=== PATIENT | female | born 1975 | race Caucasian/White ===

== ENCOUNTER 2021-02-16 09:04 | Outpatient (REF) | payer OTHER, SELFPAY ==
[2021-02-16 11:20] LABS: Glucose Urine UA NEG (NEG); Leukocyte Esterase Urine NEG (NEG); Nitrite Urine NEG (NEG); Urine Blood TRACE (NEG); Urine Ketones NEG (NEG); Urine Protein NEG (NEG-TRACE)
[2021-02-16 11:22] LABS: Appearance Urine CLEAR; Color Urine YELLOW
[2021-02-16 11:28] LABS: Hematocrit 33.6 % (37-47); Hemoglobin 10.6 g/dl (12.0-16.0); Mean Corpuscular HGB Conc 31.5 g/dl (31.0-35.0); Mean Corpuscular Hemoglobin 27.5 pg (27.0-33.0); Mean Corpuscular Volume 87.3 fL (80-98); Mean Platelet Volume 10.2 fL (9.4-12.3); Platelet Count 385 X10*3/uL (160-400); Red Blood Count 3.85 X10*6/uL (4.20-5.50); Red Cell Distribution Width 14.6 % (11.0-16.0); White Blood Count 5.9 X10*3/uL (4.8-10.8)
[2021-02-16 11:33] LABS: Squamous Epithelial Cell Urine 1+ /LPF; WBC Urine 0 /HPF (0-4)
[2021-02-16 11:44] LABS: Alanine Aminotransferase 22 U/L (0-31); Albumin Level 4.3 g/dL (3.5-5.0); Alkaline Phosphatase 55 U/L (39-117); Anion Gap 12 (12-20); Aspartate Amino Transferase 22 U/L (5-31); Bilirubin Total 0.5 mg/dL (0.0-1.0); Blood Urea Nitrogen 9 mg/dL (9-16); Calcium 9.3 mg/dL (8.4-10.2); Carbon Dioxide 25 mmol/L (22-29); Chloride 107 mmol/L (96-108); Cholesterol 204 mg/dL; Estimated Glomerular Filt Rate > 60; Glucose Fasting 97 mg/dL (60-99); HDL Cholesterol 71 mg/dL; LDL Cholesterol Calculated 121 mg/dl; Sodium 139 mmol/L (135-145); Total Protein 7.5 g/dL (6.5-8.0); Triglycerides 61 mg/dL
[2021-02-16 12:11] LABS: TSH reflex Free T4 1.16 uIU/mL (0.32-4.0)
== END 2021-02-16 09:05 | disposition home or self-care (01) ==
LOC: HO.HMGCLDS 09:04
PROVIDERS: PCP Internal Medicine; Visit Provider Internal Medicine
DX: Z00.00 Encounter for general adult medical examination without abnormal findings (principal); N94.6 Dysmenorrhea, unspecified
CPT/HCPCS: 36415; 80053; 80061; 81001; 84443; 85027

== ENCOUNTER 2021-03-03 08:31 | Outpatient (REF) | payer OTHER, SELFPAY ==
[2021-03-03 11:54] LABS: Iron 16 mcg/dL (30-160); Percent Iron Saturation 3 % (15-50); Total Iron Binding Capacity 499 mcg/dL (228-428); Unsaturated Iron Binding 483 ug/dL
[2021-03-04 07:51] LABS: Follicle Stimulating Hormone 5.7 mIU/mL
== END 2021-03-03 08:32 | disposition home or self-care (01) ==
LOC: HO.HMGCLDS 08:31
PROVIDERS: PCP Internal Medicine; Visit Provider Internal Medicine
DX: Z00.00 Encounter for general adult medical examination without abnormal findings (principal); N94.6 Dysmenorrhea, unspecified
CPT/HCPCS: 36415; 83001; 83540

== ENCOUNTER 2021-03-03 08:55 | Outpatient (REF) | payer OTHER, SELFPAY ==
[2021-03-08 21:06] LABS: HPV mRNA E6/E7 Not Detected (Not Detected)
== END 2021-03-03 08:56 | disposition home or self-care (01) ==
LOC: HO.LAB 08:55
PROVIDERS: Visit Provider Internal Medicine
DX: Z12.4 Encounter for screening for malignant neoplasm of cervix (principal); Z11.51 Encounter for screening for human papillomavirus (HPV)
CPT/HCPCS: 87624; 88142

== ENCOUNTER 2021-04-27 11:00 | Outpatient (REF) | payer OTHER, SELFPAY ==
--- NOTE | ~2021-04-27 | MM_ITS ---
EXAMINATION: MM SCREENING DIGITAL BREAST TOMOSYNTHESIS, BILATERAL CLINICAL INFORMATION: Screening. Asymptomatic. No prior breast imaging. Age 45. No known family history breast cancer. The lifetime risk of breast cancer based on the Tyrer-Cuzick Model is 8%. COMPARISON: None (current study represents initial baseline exam). TECHNIQUE: Digital breast tomosynthesis is performed in both the craniocaudal and mediolateral oblique views along with computer-aided detection (CAD). Synthesized 2D images are generated from the tomosynthesis. FINDINGS: There are scattered areas of fibroglandular density (ACR BI-RADS breast composition Category b). There are no significant masses, abnormal calcifications, or other abnormalities. The axilla and skin contours are unremarkable. MM/MM tomosynthesis screening BI IMPRESSION: No mammographic evidence of malignancy. ASSESSMENT: BI-RADS 1: Negative RECOMMENDATION: Routine annual mammography screening. This patient's information was entered into a reminder system with a target due date for their next mammogram.
--- NOTE | ~2021-04-27 | US_ITS ---
EXAMINATION: US PELVIC AND ULTRASOUND CLINICAL INFORMATION: Dysmenorrhea. COMPARISON: None TECHNIQUE: Transabdominal and transvaginal pelvic ultrasound was performed. Transvaginal exam was performed for better visualization of the uterus and ovaries. FINDINGS: The uterus is anteverted and measures 11 x 6.2 x 7.1 cm in dimension. No focal uterine lesion is seen. The endometrium is slightly thickened measuring 1.8 cm and heterogeneous-appearing. The ovaries are normal-appearing. The right ovary measures 3.3 x 2 x 1.9 cm. The left ovary measures 3.6 x 2.8 x 2.4 cm. There is a small amount of fluid in the pelvis. US/US pelvic and transvaginal IMPRESSION: Upper normal sized uterus. Slightly thickened heterogeneous endometrium measuring 1.8 cm. Normal-appearing ovaries.
== END 2021-04-27 11:01 | disposition home or self-care (01) ==
LOC: HO.US 11:00
PROVIDERS: PCP Internal Medicine; Visit Provider Internal Medicine
DX: Z12.31 Encounter for screening mammogram for malignant neoplasm of breast (principal); N94.6 Dysmenorrhea, unspecified
CPT/HCPCS: 76830; 76856; 77063; 77067

== ENCOUNTER 2021-08-29 13:17 | Outpatient (REF) | payer OTHER, SELFPAY ==
--- NOTE | ~2021-08-29 | XR_ITS ---
EXAMINATION: XR CHEST CLINICAL INFORMATION: Positive Covid 19 COMPARISON: None TECHNIQUE: 2 views of the chest were obtained. FINDINGS: No significant abnormality is noted involving the heart, lungs, mediastinum, bony thorax or soft tissues. XR/XR chest 2V IMPRESSION: No acute disease.
== END 2021-08-29 13:18 | disposition home or self-care (01) ==
LOC: HO.HMGCX 13:17
PROVIDERS: PCP Nurse Practitioner Family; Visit Provider Nurse Practitioner Family
DX: U09.9 Post COVID-19 condition, unspecified (principal)
CPT/HCPCS: 71046

== ENCOUNTER 2022-03-28 08:21 | Outpatient (REF) | payer OTHER, SELFPAY ==
[2022-03-28 11:10] LABS: MANUAL DIFF FLAG NO
[2022-03-28 11:37] LABS: Basophils Percent Auto 0.5 % (0-2); Eosinophils Absolute Auto 0.2 X10*3/uL (0.0-0.4); Hematocrit 32.8 % (37.0-47.0); Hemoglobin 10.2 g/dl (12.0-16.0); Imm Gran Abs Auto 0.02 X10*3/uL (0.00-0.03); Imm Gran Pct Auto 0.3 % (0.0-0.4); Lymphocytes Absolute Auto 1.5 X10*3/uL (1.2-4.9); Lymphocytes Percent Auto 22.7 % (20-40); Mean Corpuscular HGB Conc 31.1 g/dl (31.0-35.0); Mean Corpuscular Volume 83.7 fL (80.0-98.0); Mean Platelet Volume 10.8 fL (9.4-12.3); Monocytes Absolute Auto 0.6 X10*3/uL (0.1-1.2); Monocytes Percent Auto 9.5 % (2-11); Neutrophils Absolute Auto 4.1 x10*3/uL (2.0-8.3); Platelet Count 366 X10*3/uL (160-400); Red Blood Count 3.92 X10*6/uL (4.20-5.50); Red Cell Distribution Width 14.9 % (11.0-16.0); White Blood Count 6.4 X10*3/uL (4.8-10.8)
[2022-03-28 12:00] LABS: Alanine Aminotransferase 14 U/L (0-31); Albumin Level 4.3 g/dL (3.5-5.0); Alkaline Phosphatase 50 U/L (39-117); Anion Gap 9 (12-20); Aspartate Amino Transferase 16 U/L (5-31); Bilirubin Total 0.3 mg/dL (0.0-1.0); Blood Urea Nitrogen 10 mg/dL (9-16); Carbon Dioxide 27 mmol/L (22-29); Chloride 105 mmol/L (96-108); Cholesterol 194 mg/dL; Estimated Glomerular Filt Rate > 60; Glucose Fasting 97 mg/dL (60-99); HDL Cholesterol 63 mg/dL; Iron 26 mcg/dL (30-160); LDL Cholesterol Calculated 110 mg/dl; Percent Iron Saturation 5 % (15-50); Potassium 4.4 mmol/L (3.3-5.1); Sodium 137 mmol/L (135-145); Total Iron Binding Capacity 483 mcg/dL (228-428); Total Protein 7.5 g/dL (6.5-8.0); Triglycerides 108 mg/dL; Unsaturated Iron Binding 457 ug/dL
[2022-04-03 18:22] LABS: Vitamin D 25-OH, D2 <4 ng/mL; Vitamin D 25-OH, D3 25 ng/mL; Vitamin D 25-OH, Total 25 ng/mL (30-100)
== END 2022-03-28 08:22 | disposition home or self-care (01) ==
LOC: HO.HMGCLDS 08:21
PROVIDERS: PCP Internal Medicine; Visit Provider Internal Medicine
DX: Z00.00 Encounter for general adult medical examination without abnormal findings (principal); D64.9 Anemia, unspecified
CPT/HCPCS: 36415; 80053; 80061; 82306; 83540; 85025

== ENCOUNTER 2022-04-30 11:34 | Outpatient (REF) | payer OTHER, SELFPAY ==
--- NOTE | ~2022-04-30 | MM_ITS ---
EXAMINATION: MM SCREENING DIGITAL BREAST TOMOSYNTHESIS, BILATERAL CLINICAL INFORMATION: Screening. Asymptomatic. The lifetime risk of breast cancer based on the Tyrer-Cuzick Model is 7%. COMPARISON: Mammography: 04/27/2021 (baseline) TECHNIQUE: Digital breast tomosynthesis is performed in both the craniocaudal and mediolateral oblique views along with computer-aided detection (CAD). Synthesized 2D images are generated from the tomosynthesis. FINDINGS: There are scattered areas of fibroglandular density (ACR BI-RADS breast composition Category b). There are multiple grouped punctate calcifications central upper outer left breast more conspicuous on current study and representing change from prior exam. Patient will be read for additional magnification views. The remainder of the breasts show no mass or architectural abnormality or abnormal calcifications. No developing density. The axilla and skin contours are unremarkable. MM/MM tomosynthesis screening BI IMPRESSION: Left: -Grouped punctate calcifications central upper outer left breast. Right: -No mammographic evidence of malignancy. ASSESSMENT: BI-RADS 0: Incomplete - Need Additional Imaging Evaluation RECOMMENDATION: 1. Additional views of the left breast (magnification CC, magnification ML). 2. Radiology department staff will contact the patient for additional imaging. This patient's information was entered into a reminder system with a target due date for their next mammogram.
== END 2022-04-30 11:35 | disposition home or self-care (01) ==
LOC: HO.MAMMO 11:34
PROVIDERS: PCP Internal Medicine; Visit Provider Internal Medicine
DX: Z12.31 Encounter for screening mammogram for malignant neoplasm of breast (principal)
CPT/HCPCS: 77063; 77067

== ENCOUNTER 2022-05-09 13:36 | Outpatient (REF) | payer OTHER, SELFPAY ==
--- NOTE | ~2022-05-09 | MM_ITS ---
EXAMINATION: MM DIAGNOSTIC DIGITAL MAMMOGRAPHY, LEFT CLINICAL INFORMATION: Recall from screening for grouped punctate calcifications central upper outer left breast. COMPARISON: Mammography: 04/30/2022, 04/27/2021 (baseline) TECHNIQUE: Digital mammography is performed in the following views: Magnification CC and magnification ML. FINDINGS: There are scattered areas of fibroglandular density (ACR BI-RADS breast composition Category b). The additional views confirm numerous tightly grouped heterogeneous calcifications anterior 12:30 position. This represents change from prior exam. Stereotactic sampling is recommended. Results are discussed with the patient and her friend at time of visit. MM/MM added views LT IMPRESSION: Grouped heterogeneous calcifications anterior 12:30. ASSESSMENT: BI-RADS 4: Suspicious RECOMMENDATION: Stereotactic biopsy left breast. This patient's information was entered into a reminder system with a target due date for their next mammogram.
== END 2022-05-09 13:37 | disposition home or self-care (01) ==
LOC: HO.MAMMO 13:36
PROVIDERS: PCP Internal Medicine; Visit Provider Internal Medicine
DX: R92.1 Mammographic calcification found on diagnostic imaging of breast (principal)
CPT/HCPCS: 77065

== ENCOUNTER 2022-05-17 09:05 | Outpatient (REF) | payer OTHER, MEDICAID, SELFPAY ==
--- NOTE | ~2022-05-17 | MM_ITS ---
EXAMINATION: STEREOTACTIC TOMOSYNTHESIS-GUIDED VACUUM-ASSISTED BREAST BIOPSY, LEFT SPECIMEN RADIOGRAPH, LEFT POST PROCEDURE DIGITAL MAMMOGRAM, LEFT CLINICAL INFORMATION: Tightly grouped calcifications anterior 12:30 left breast. TC score 7%. COMPARISON: Mammography 05/09/2022, 04/30/2022, 04/27/2021. TECHNIQUE/PROCEDURE: Hospital provided parts interpreter assisted for the preprocedure questions, consent, and home instructions. Informed consent was obtained from the patient after discussion of the benefits, risks, and alternatives to biopsy today. Patient appeared to understand. Gave opportunity for questions. Patient signed consent form. BIOPSY TABLE: [employer] Affirm Prone Biopsy System. LESION: Tightly grouped calcifications anterior 12:30 left breast. LOCAL ANESTHESIA: 20 mL carbonated 1% lidocaine. DERMATOTOMY: Single skin tiffanie dermatotomy performed. NEEDLE: [employer] Eviva 9-gauge vacuum assisted core biopsy device. APPROACH: Craniocaudal. TARGETING: Combination of digital breast tomosynthesis and stereotactic digital mammography used for targeting. CORES: 10. CLIP: [employer] SecurMark Cylinder-shaped marker. SPECIMEN RADIOGRAPH: Two specimen radiographs are taken in separate room using digital mammography. The index calcifications are in the 2nd radiograph excised cores. There are over 25 calcifications in the cores. POST PROCEDURE UNILATERAL DIGITAL MAMMOGRAM: The post biopsy mammogram is performed in separate room using separate digital mammography equipment from the biopsy procedure. CC and ML views are obtained. There are scattered areas of fibroglandular density (breast composition category: b). The clip marker is in position. The calcifications are decreased at the biopsy site. No gross hematoma. The patient tolerated the procedure well. No immediate complications. Home instructions reviewed with the patient. Final pathology results are pending. MM/MM stereotactic biopsy LT IMPRESSION: 1. Digital tomosynthesis-guided core biopsy left breast with clip placement. 2. Specimen radiograph taken and post procedure mammogram. There is satisfactory positioning of the biopsy clip. 3. Final pathology results pending. An addendum report will be issued.
[2022-05-17] MEDS: Lidocaine HCl 1 % 20 ML VIAL 9 ML SUBCUT ×2 (10:54→10:57)
[2022-05-17] MEDS: Sodium Bicarbonate 8.4% 50 MEQ/50 ML VIAL SUBCUT ×2 (10:56→10:58)
== END 2022-05-17 09:06 | disposition home or self-care (01) ==
LOC: HO.MAMMO 09:05
PROVIDERS: PCP Internal Medicine; Visit Provider Surgery
DX: R92.8 Other abnormal and inconclusive findings on diagnostic imaging of breast (principal)
CPT/HCPCS: 19081; 88305; 88341; 88342; A4648

== ENCOUNTER 2022-06-13 08:52 | Day surgery (SDC) | payer OTHER, SELFPAY ==
--- NOTE | 2022-06-12 09:28 | HO.ANESPROP2 ---
Documented by User: Franca Metzger NP 06/12/22 09:29 HPI - Anesthesia Eval Consult details Narrative: 46yo F for Left Breast Lumpectomy/Needle Loc PMFSH Active Problems Active Problems: All Active Problems (Updated 06/04/22 @ 17:03 by Frankie Giron MD) Atypical ductal hyperplasia of left breast (Acute) Abnormal mammogram of left breast (Acute) Hx of mammogram (Acute) Normal pelvic exam (Acute) Post covid-19 condition, unspecified (Acute) Anemia (Acute) Annual physical exam (Acute) Dysmenorrhea (Acute) Past Medical History Medical History Anemia Annual physical exam Dysmenorrhea Family History Family History Father Throat cancer Mother No problems noted. 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 Current occupational exposures/hazards: No Cognitive needs: No Hearing needs: No Vision needs: Yes Meds Allergies Allergy/AdvReac Type Severity Reaction Status Date / Time No Known Allergies Allergy Verified 05/17/22 08:42 Home Medications Medication Instructions Recorded Confirmed Last Taken Type norethindrone acetate 5 mg tablet mg PO 05/17/22 06/04/22 06/06/22 History ferrous sulfate 325 mg (65 mg 65 mg PO BEDTIME 06/13/22 06/13/22 06/12/22 History iron) tablet (Iron (ferrous sulfate)) Exam Exam Date and Time: June 12, [id number] Pertinent Lab Results Pertinent Lab Results: Laboratory Tests 03/28/22 03/28/22 08:26 08:26 WBC 6.4 Hgb 10.2 L Hct 32.8 L Plt Count 366 Sodium 137 Potassium 4.4 Chloride 105 Carbon Dioxide 27 BUN 10 Creatinine 0.72 Assessment and Plan Assessment Anesthesia Assessment: Chart Reviewed Documented by User: Lo Melchor MD 06/13/22 10:01 [facility] Past Medical History Medical History Anemia Annual physical exam Dysmenorrhea Functional capacity: independent ambulation Patient : No Family History Family History Father Throat cancer Mother No problems noted. 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/hazards: No Cognitive needs: No Hearing needs: No Vision needs: Yes Meds Allergies Allergy/AdvReac Type Severity Reaction Status Date / Time No Known Allergies Allergy Verified 05/17/22 08:42 Home Medications Medication Instructions Recorded Confirmed Last Taken Type norethindrone acetate 5 mg tablet mg PO 05/17/22 06/04/22 06/06/22 History ferrous sulfate 325 mg (65 mg 65 mg PO BEDTIME 06/13/22 06/13/22 06/12/22 History iron) tablet (Iron (ferrous sulfate)) Exam Airway Heart: RRR Lungs: CTA Assessment and Plan Final Anesthetic Review Family History of Problems with Anesthesia: No History of Problems with Anesthesia: Unobtainable ASA Class: II Final Preanesthetic Review: No Changes in Pt Med Stat, Meds/Allgs Chart Reviewed, Consent Obtained/Reviewed and Anes Risks/Benef Reviewed Patient Risk: Low Procedure Risk: Low Anesthetic Plan Anesthetic Plan: GA Disposition: Standard PACU
[2022-06-13] VITALS (7 sets, daily range): BP systolic 107–127; BP diastolic 60–89; PULSE 58–87; RESP 13–20; TEMP 36.1–36.3; O2SAT 98–100; BMI 28.7
--- NOTE | ~2022-06-13 | MM_ITS ---
EXAMINATION: MM MAMMOGRAM GUIDED NEEDLE LOCALIZATION BREAST, LEFT MM NEEDLE LOCALIZATION SPECIMEN FROM THE LEFT BREAST CLINICAL INFORMATION: Recent ADH left breast. COMPARISON: Mammography 04/30/2022, 05/09/2022, 05/17/2022. TECHNIQUE NEEDLE LOC: Hospital provided japanese interpreter assisted for the consent. Proper informed consent is obtained from the patient after discussion of the procedure, potential risks and complications, and alternatives including declining the procedure today. Patient was given an opportunity for questions. The patient appeared to understand. The patient consented to the procedure and signed the consent form. GUIDANCE: Digital mammography. APPROACH: Lateral Medial. TARGET: Cylinder shaped clip marker with adjacent fine calcifications upper outer left breast. ANESTHESIA: Carbonated lidocaine 1%: 6 mL. LOCALIZATION MARKER: [place] [employer]. 7.5 cm in length. The skin is prepped and local anesthesia administered. The needle is positioned and position assessed with mammography. The wire is hooked into position. Dolphin needle protector placed. The patient tolerated the procedure well and had no immediate complication. Procedure results called to medical coding manager (Lisa) for Dr. Giron following the procedure. TECHNIQUE SPECIMEN RADIOGRAPH: Imaging of the excised specimen is performed using digital mammography in 1 view. FINDINGS SPECIMEN RADIOGRAPH: The distal needle and hookwire are delivered intact. The proximal needle and hookwire are sectioned in OR prior to delivery to radiology. The biopsy clip marker and numerous adjacent index calcifications are identified in the specimen. Results were called to Dr. Frankie Giron in the operating room at the time of imaging. MM/MM needle loc LT IMPRESSION: 1. Status post left breast needle localization with wire hooked into position. 2. Post operative specimen radiograph obtained.
[2022-06-13 09:11] LABS: UPreg QC Valid YES; Urine Pregnancy NEGATIVE (NEGATIVE)
[2022-06-13] MEDS: Lactated Ringers 1,000 ML 100 ML IVCONT (10:00)
--- NOTE | 2022-06-13 11:05 | MHC.SHP ---
Pre-Procedural Eval Section A Date of Service: 06/13/22 Changes since office visit: Yes Patient answered all questions; No Cold of Flu in the past 2 weeks, No New Medical Problems and No Changes in Medication The History & Physical has been completed within 30 days and I have reviewed it.: Yes Section B Chief Complaint: Unspecified benign mammary dysplasia of left breas Allergies: Allergies Allergy/AdvReac Type Severity Reaction Status Date / Time No Known Allergies Allergy Verified 05/17/22 08:42 Plan Diagnosis/Plan: Unchanged I have reviewed the history and physical and performed a pertinent physical examination on my patient. No changes have occurred unless specified.
[2022-06-13] MEDS: Lidocaine HCl 1 % 20 ML VIAL 9 ML SUBCUT (11:31)
[2022-06-13] MEDS: Sodium Bicarbonate 8.4% 50 MEQ/50 ML VIAL SUBCUT (11:33)
--- NOTE | 2022-06-13 12:24 | P.OP_ITS ---
Operative Note Operative Note Date of Service: 06/13/22 Narrative: Preoperative diagnosis: atypical ductal hyperplasia left breast Postoperative diagnosis: same Procedure: left breast lumpectomy with needle localization Surgeon: Frankie Giron MD Construction Lineman: Jeanette Lara PA-C, SMILEY Hoover Anesthesia: general LMA Indications for procedure: 46-year-old male presenting with a cluster of calcifications in left breast, s/p stereotactic guided core biopsy which reveal ed atypical ductal hyperplasia. She returns today for wider excision with needle localization. Operative findings: Specimen x-ray confirms marking clip and calcifications within the specimen. Specimen: Left breast lumpectomy Estimated blood loss: 10 mL Complications: none Procedure details: patient was brought to the OR placed in a supine position. After administering general anesthesia the patient's left breast was prepped with ChloraPrep and draped in a sterile fashion. A surgical time-out was called the consent confirmed. Patient received preoperative antibiotics and Venodyne boots were in place. Local anesthesia consisting of 0.5% bupivacaine was infiltrated around the localizing wire in the upper outer quadrant. A curvilinear incision was made at the margin of the areola at the 12 to the 2 o'clock position. This was carried out through subcutaneous tissue. Superior inferior skin flaps were then created over the breast tissue. Using the localizing needle as a guide a core of tissue surrounding the localizing wire was then excised using electrocautery. Margins included below the skin level at the entrance site of the needle and the tip of the needle. A barbed wire machine operator was used to cut the needle at the insertion site in the specimen removed. the specimen was sent to pathology for further examination. Specimen x-ray confirmed calcifications in marking clip within the specimen. Wounds were then checked for hemostasis using electrocautery. Wounds were irrigated with saline solution and suctioned dry. Deep breast tissue was then closed using interrupted 3-0 Polysorb sutures. Superficial breast tissue and dermis were then reapproximated using interrupted 3-0 Polysorb sutures. Skin was closed using a running subcuticular 4-0 Polysorb suture. Steri-Strips, 2 x 2 gauze and Tegaderm were then applied. The patient tolerated the procedure well. Sponge, instrument, and needle counts were correct. The patient was transferred to PACU in stable condition.
--- NOTE | 2022-06-13 13:16 | HO.POSTANES ---
Post Anesthesia Evaluation Post Anesthesia Evaluation Vital Signs: Vital Signs Temp Pulse Resp BP Pulse Ox O2 Del Method O2 Flow Rate 06/13/22 13:00 58 16 115/62 99 Room Air 06/13/22 12:45 64 15 108/66 100 Nasal Cannula 2 06/13/22 12:40 65 13 115/66 100 Nasal Cannula 2 06/13/22 12:35 75 16 119/74 99 Nasal Cannula 2 06/13/22 12:30 97.0 F 87 20 111/60 98 Nasal Cannula 3 06/13/22 09:13 97.4 F 83 16 127/89 99 Room Air Anesthesia: General LMA Mental Status: Awake Pain Control: Satisfactory Nausea/Vomiting: None Hydration: Adequate Anesthesia-Related Issues: No Anes. Related Issues
== END 2022-06-13 13:58 | disposition home or self-care (01) ==
PROVIDERS: Nurse Practitioner; PCP Internal Medicine; Visit Provider Surgery
PROC: (CPT 19301; principal; 2022-06-13 11:00)
DX: N60.92 Unspecified benign mammary dysplasia of left breast (principal); N94.6 Dysmenorrhea, unspecified; D64.9 Anemia, unspecified; Z79.899 Other long term (current) drug therapy; Z87.891 Personal history of nicotine dependence
CPT/HCPCS: 19301; 19281; 81025; 88307; 88329; A4648; J0131; J0690; J1100; J2250; J2405; J2795; J3010

== ENCOUNTER 2022-07-04 14:24 | Outpatient (REF) | payer OTHER, SELFPAY ==
--- NOTE | ~2022-07-04 | MM_ITS ---
EXAMINATION: BONE DENSITOMETRY CLINICAL INDICATION: Perimenopausal. COMPARISON: This is the patient's baseline examination. TECHNIQUE: Using a [employer] DXA System (software version: 13.1) manufactured by [employer], dual-energy x-ray absorptiometry was performed of the lumbar spine and left hip. The images are of good technical quality. Based on ISCD (International Society for Clinical Densitometry) standards of reporting, Z-scores instead of T-scores are reported in this premenopausal woman. Summary results are attached. FINDINGS: AP SPINE L1-L4: BMD 1.285 g/cm2, T-score 0.9, Z-score 0.7, Z-score within expected range for age. LEFT FEMUR, NECK: BMD 1.120 g/cm2, T-score 0.6, Z-score 1.0, Z-score within expected range for age. LEFT FEMUR, TOTAL: BMD 1.127 g/cm2, T-score 0.9, Z-score 1.1, Z-score within expected range for age. IDENTIFIED RISK FACTORS: None listed. HISTORY OF FRACTURE: None listed. MEDICATIONS: None listed. MM/XR DEXA axial skeleton IMPRESSION: 1. DIAGNOSIS: Based on the lowest Z-score value of 0.7 in the lumbar spine, the patient's bone density is within the expected range for age. 2. 10-YEAR FRACTURE RISK PREDICTION, FRAX: Not performed in this perimenopausal patient. 3. Treatment Recommendations: NOF guidelines recommend consideration for treatment in postmenopausal women and men age 50 and older presenting with the following: -A hip or vertebral (clinical or morphometric) fracture. -T-score less than or equal to -2.5 at the femoral neck or spine after appropriate evaluation to exclude secondary causes. -Low bone mass at the hip or spine and a 10-year fracture probability by FRAX of greater than or equal to 3% for hip fracture or greater than or equal to 20% for major osteoporotic fracture based on the [place] adapted WHO algorithm. 4. Other Recommendations: All treatment decisions require clinical judgment and consideration of individual patient factors, including patient preferences, comorbidities, previous drug use, risk factors not captured in the FRAX model (e.g. frailty, falls, vitamin D deficiency, increased bone turnover, interval significant decline in bone density) and possible under or overestimation of fracture risk by FRAX. FUTURE SCAN RECOMMENDATION: People with diagnosed cases of osteoporosis or at high risk for fracture should have regular bone mineral density tests. For patients eligible for Medicare, routine testing is allowed once every 2 years. The testing frequency can be increased to one year for patients who have rapidly progressing disease, those who are receiving or discontinuing medical therapy to restore bone mass, or have additional risk factors.
== END 2022-07-04 14:25 | disposition home or self-care (01) ==
LOC: HO.MAMMO 14:24
PROVIDERS: PCP Internal Medicine; Visit Provider Internal Medicine Medical Oncology
DX: Z13.820 Encounter for screening for osteoporosis (principal); N60.92 Unspecified benign mammary dysplasia of left breast; Z78.0 Asymptomatic menopausal state
CPT/HCPCS: 77080

== ENCOUNTER → 2022-07-17 16:00 | Outpatient (BNV) | payer OTHER, SELFPAY | PROVIDERS: PCP Internal Medicine; Visit Provider Internal Medicine Medical Oncology | DX: N60.92 Unspecified benign mammary dysplasia of left breast (principal) | CPT/HCPCS: 99213; 99214 ==

== ENCOUNTER → 2022-09-25 11:43 | Outpatient (BNVA) | payer OTHER, SELFPAY | PROVIDERS: PCP Internal Medicine; Visit Provider Surgery | DX: Z13.89 Encounter for screening for other disorder (principal) ==

== ENCOUNTER 2023-04-02 15:43 | Outpatient (AMB) | payer OTHER, SELFPAY ==
--- NOTE | 2023-04-02 15:47 | MHC.OFFVIS ---
Intake Vital Signs 04/02/23 15:52 Height 5 ft 2 in Weight 153 lb BMI 28.0 BP 144/84 H Blood Pressure Location Lt brachial Position Sitting Pulse 85 Intake Visit Reasons: 3 mth follow up ADH Lt Brst Intake Note: Patient is seen in office for 3 month follow up visit, breast exam. 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 This was new from her baseline mammogram the previous year and felt to be suspicious for malignancy. Her Tyrer-Cuzick remaining lifetime risk of developing breast cancer was calculated at 7%. She denied a previous history of breast problems or breast surgery. Her family history is negative for breast cancer. She is and breastfed her children. She denies difficulties with breast-feeding or breast infections. She underwent a stereotactic guided core biopsy on 05/17/2022. Pathology revealed: Breast tissue with markedly atypical epithelium and associated microcalcifications, background fibrocystic changes. Atypical focus is quite small but resents at least atypical ductal hyperplasia. Cannot rule out ductal carcinoma in-situ. No invasive carcinoma is seen in the current sample. She underwent lumpectomy with needle localization on 06/13/2022. Pathology revealed a small focus of atypical ductal hyperplasia with negative margins; background biopsy site and fibrocystic changes. Negative for in-situ or invasive carcinoma. She was subsequently evaluated by Medical Oncology and started on tamoxifen. She is tolerating this well but does report some muscle aches and joint pain. She is scheduled for her annual mammogram on 05/03/2023 [facility] Medical History Anemia Annual physical exam Dysmenorrhea Surgical History History of lumpectomy of left breast (06/13/22) Family History Father Throat cancer Mother No problems noted. 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 Current occupational exposures/hazards: No Cognitive needs: No Hearing needs: No Vision needs: Yes Female Reproductive History Menstrual Age of Menarche: 16 Review of Systems Const All systems reviewed & are unremarkable except as noted in HPI and below Denies chills, Denies fever(s), Denies headache(s), Denies poor appetite and Denies weakness ENT Denies headache(s) Card Denies chest pain, Denies irregular heart rhythm, Denies palpitations and Denies dyspnea Resp Denies cough, Denies excessive phlegm production and Denies dyspnea GI Denies abdominal pain, Denies bloating, Denies change in bowel habits, Denies constipation, Denies heartburn, Denies diarrhea, Denies nausea and Denies vomiting Denies urinary frequency Musc Denies back pain, Denies muscle weakness and Denies numbness Skin/Breast Denies changing lesions and Denies unusual bruising Neuro Denies headache(s), Denies numbness, Denies paresthesias and Denies weakness Psych Denies anxiety and Denies depression Endo Denies palpitations Jai/Lymph Denies lymphadenopathy Physical Exam Vital Signs: Last Vital Signs Pulse 85 04/02/23 15:52 BP 144/84 H 04/02/23 15:52 BMI result Body Mass Index 28.0 Const General: cooperative and no acute distress Nutritional Appearance: well nourished Orientation/consciousness: patient oriented x3 Limitations: no limitations HEENT Head: Yes normocephalic and Yes atraumatic Ears: hearing grossly normal bilaterally Chest Other: Left breast: Well-healed incision in the periareolar location without redness or discharge. Slight retraction of the incision is noted. No new palpable mass, skin change, or enlarged lymph nodes are appreciated. Right breast: No skin change, nipple discharge, palpable mass, or enlarged lymph nodes. Resp Effort & Inspection: normal respiratory effort, no audible wheezes, no cough and no respiratory distress Cardio Jugular venous distension: no JVD GI Inspection: Yes normal to inspection Skin Other: Warm, dry, no rash Neuro General: patient oriented x3 Extrem General: Yes no clubbing, cyanosis or edema Assessment & Plan Assessment & Plan (1) Atypical ductal hyperplasia of left breast: Code(s): N60.92 - Unspecified benign mammary dysplasia of left breast Plan 47-year-old female patient presenting with atypical ductal hyperplasia of the left breast. Subsequent lumpectomy confirmed atypical ductal hyperplasia involving a small focus with no evidence of DCIS or invasive carcinoma. She was evaluated by Medical Oncology and started on tamoxifen. Examination today reveals no suspicious findings in either breast. There is a slight scar retraction noted in the left breast. I suggested she return in approximately 6 months for follow-up examination. She is welcome to call sooner for any new concerns. Yearly mammogram scheduled for 05/03/2023. Coding Level of Care Code Est Pt Level 3 (23780) Diagnoses Atypical ductal hyperplasia of left breast N60.92
[2023-04-02 15:52] VITALS: BP 144/84; PULSE 85; BMI 28.0
== END 2023-04-02 16:00 | disposition home or self-care (01) ==
PROVIDERS: PCP Internal Medicine; Visit Provider Surgery
DX: N60.92 Unspecified benign mammary dysplasia of left breast (principal)
CPT/HCPCS: 99213

== ENCOUNTER → 2023-04-02 15:43 | Outpatient (BNVA) | payer OTHER, SELFPAY | PROVIDERS: PCP Internal Medicine; Visit Provider Surgery ==

== ENCOUNTER 2023-04-16 10:37 | Outpatient (REF) | payer OTHER, SELFPAY ==
[2023-04-16 13:31] LABS: MANUAL DIFF FLAG NO
[2023-04-16 13:50] LABS: Basophils Percent Auto 0.3 % (0-2); Eosinophils Absolute Auto 0.1 X10*3/uL (0.0-0.4); Eosinophils Percent Auto 1.7 % (0-4); Hematocrit 40.5 % (37.0-47.0); Hemoglobin 13.4 g/dl (12.0-16.0); Imm Gran Abs Auto 0.01 X10*3/uL (0.00-0.03); Imm Gran Pct Auto 0.2 % (0.0-0.4); Lymphocytes Percent Auto 33.3 % (20-40); Mean Corpuscular HGB Conc 33.1 g/dl (31.0-35.0); Mean Corpuscular Hemoglobin 30.4 pg (27.0-33.0); Mean Corpuscular Volume 91.8 fL (80.0-98.0); Mean Platelet Volume 10.7 fL (9.4-12.3); Monocytes Absolute Auto 0.4 X10*3/uL (0.1-1.2); Monocytes Percent Auto 6.4 % (2-11); Neutrophils Absolute Auto 3.5 x10*3/uL (2.0-8.3); Neutrophils Percent Auto 58.1 % (45-73); Platelet Count 312 X10*3/uL (160-400); Red Blood Count 4.41 X10*6/uL (4.20-5.50); Red Cell Distribution Width 12.7 % (11.0-16.0)
[2023-04-16 14:18] LABS: Alanine Aminotransferase 15 U/L (0-31); Albumin Level 4.4 g/dL (3.5-5.0); Alkaline Phosphatase 36 U/L (39-117); Anion Gap 12 (12-20); Aspartate Amino Transferase 19 U/L (5-31); Bilirubin Total 0.5 mg/dL (0.0-1.0); Blood Urea Nitrogen 10 mg/dL (9-16); Calcium 9.9 mg/dL (8.4-10.2); Carbon Dioxide 27 mmol/L (22-29); Chloride 108 mmol/L (96-108); Cholesterol 167 mg/dL; Estimated Glomerular Filt Rate > 60; Glucose Fasting 94 mg/dL (60-99); HDL Cholesterol 52 mg/dL; Iron 122 mcg/dL (30-160); LDL Cholesterol Calculated 98 mg/dl; Percent Iron Saturation 38 % (15-50); Sodium 143 mmol/L (135-145); Total Iron Binding Capacity 325 mcg/dL (228-428); Triglycerides 89 mg/dL; Unsaturated Iron Binding 203 ug/dL
== END 2023-04-16 10:38 | disposition home or self-care (01) ==
LOC: HO.HMGCLDS 10:37
PROVIDERS: PCP Internal Medicine; Visit Provider Internal Medicine
DX: Z00.00 Encounter for general adult medical examination without abnormal findings (principal); D64.9 Anemia, unspecified
CPT/HCPCS: 36415; 80053; 80061; 83540; 84443; 85025

== ENCOUNTER 2023-04-16 13:31 | Outpatient (AMB) | payer OTHER, SELFPAY ==
[2023-04-16 13:35] VITALS: BP 94/62; PULSE 80; O2SAT 99; BMI 27.2
--- NOTE | 2023-04-16 13:35 | A.OFFPC_ITS ---
Vital Signs 04/16/23 13:35 Height 5 ft 2 in Weight 149 lb BMI 27.2 BP 94/62 Blood Pressure Location Rt brachial Position Sitting Pulse 80 Pulse Source Pulse Oximeter Pulse Oximetry (%) 99 Oxygen Delivery Method Room Air Intake Visit Reasons: PE - due colonoscopy Intake Note: Pt is here today for PE. Allergies No Known Allergies Allergy (Verified 04/16/23 13:41) Medication List - Last Reconciled 04/16/23 by Kylie Murray MD ferrous sulfate (Iron (ferrous sulfate)) 65 mg PO BEDTIME levonorgestrel (Mirena) 20 mcg intrauterine DAILY tamoxifen 20 mg PO DAILY Tobacco use date assessed: 04/16/23 Dental Screening Dental Screen Date: 04/16/23 Did you have a dental visit in the last 12 months?: Yes Did you have a dental problem in the last 6 months where you did not have access to dental care?: No Was dental information given to patient?: Patient has dentist HPI PE - due colonoscopy HPI Details Patient presents for physical. Patient underwent left breast lumpectomy for atypical ductal hyperplasia and was started on tamoxifen. Patient reports generalized body aches and bone pains which have been getting better with time. Patient follows up with Oncology and surgery. Patient complains of left shoulder pain worse when trying to use it for the last few weeks. 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 [facility] Medical History Anemia Annual physical exam Dysmenorrhea Surgical History History of lumpectomy of left breast (06/13/22) Family History Father Throat cancer Mother No problems noted. 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 1. Little interest or pleasure in doing things: not at all 2. Feeling down, depressed, or hopeless: not at all 3. Trouble falling or staying asleep, or sleeping too much: not at all 4. Feeling tired or having little energy: not at all 5. Poor appetite or overeating: not at all 6. Feeling bad about yourself - or that you are a failure or have let yourself or your family down: not at all 7. Trouble concentrating on things, such as reading the newspaper or watching television: not at all 8. Moving or speaking so slowly that other people could have noticed. Or the opposite - being so fidgety or restless that you have been moving around a lot more than usual: not at all 9. Thoughts that you would be better off or of hurting yourself in some way: not at all Total score: 0 Depression Screening Interpretation: Negative Source: Developed by Drs. Chaparro Thomas, Radha Mcgrath, Nemesio Valdes and colleagues, with an educational glynn from [facility]. Thrive Questionnaire Date Thrive assessed: 04/16/23 I am a: Patient What is your living situation today?: I have a steady place to live Within the past 12 months, did the food you bought not last and you didn't have the money to get more?: Never true Within the past 12 months, did you worry whether your food would run out before you got money to buy more?: Never true Do you have trouble paying for medicines?: No Do you have trouble getting transportation to medical appointments?: No Do you have trouble paying your heating and electricity bill?: No Do you have trouble taking care of your child, family member or friend?: No Do you have trouble with day-to-day activities such as bathing, preparing meals, shopping, managing finances, etc.?: No Are you currently unemployed and looking for a job?: No Are you interested in more education?: No Please select the resources that you would like help with: None Currently or been in a relationship where the following occur: no concerns reported AUDIT C Alcohol Use Questionnaire (AUDIT-C) 1. How often do you have a drink containing alcohol?: Never 3. How often do you have six or more drinks on one occasion?: Never Total Score: 0 CARLITO-7 AMB Questionnaire CARLITO-7 Date CARLITO - 7 assessed: 04/16/23 Feeling nervous, anxious, or on edge: 0 = Not at all Not being able to stop or control worryin = Not at all Worrying too much about different things: 0 = Not at all Trouble relaxin = Not at all Being so restless that it is hard to sit still: 0 = Not at all Becoming easily annoyed or irritable: 0 = Not at all Feeling afraid as if something awful might happen: 0 = Not at all Total CARLITO-7 score (0-4 normal; 5-9 mild; 10-14 moderate; 15-21 severe): 0 Source: Developed by Drs. Chaparro Thomas, Radha Mcgrath, Nemesio Valdes and colleagues, with an educational glynn from [facility]. Review of Systems Const All systems reviewed & are unremarkable except as noted in HPI and below Reports no additional complaints Eyes Reports no additional complaints ENT Reports no additional complaints Card Reports no additional complaints Resp Reports no additional complaints GI Reports no additional complaints Physical exam (Primary Care) Vital Signs: Last Vital Signs Pulse 80 04/16/23 13:35 BP 94/62 04/16/23 13:35 Pulse Ox 99 04/16/23 13:35 Oxygen Delivery Method Room Air 04/16/23 13:35 BMI result Body Mass Index 27.2 Tobacco/Smoking Status: Tobacco use Status Tobacco use date assessed 04/16/23 04/16/23 13:47 Patient Tobacco Use Status Former Tobacco user 04/16/23 13:36 e-Cigarette/Vaping Use Never Used 04/16/23 13:36 PHQ-9: PHQ-9 Score PHQ-9: Total score 0 04/16/23 14:06 Depression Screening Interpretation: Negative Thrive Assessment: Date of Thrive Assessment Date Thrive assessed 04/16/23 04/16/23 13:47 Currently or been in a relationship where the following occur: no concerns reported Const General: no acute distress HENMT Ears: hearing grossly normal bilaterally Face and sinus: Yes normal facial exam Eyes General: appearance normal, both eyes and all related structures Neck Neck: Yes supple Resp Effort & Inspection: normal respiratory effort Auscultation: clear to auscultation bilaterally Cardio Rhythm: regular rhythm Heart sounds: S1 normal heart sound present and S2 normal heart sound present GI Inspection: Yes normal to inspection Palpation (GI): Soft to palpation Percussion: Yes normal to percussion Auscultation: normal bowel sounds Extrem Other: Slightly decreased range of motion left shoulder supraspinatus and paraspinal left upper thoracic reproducible tenderness and muscle spasm Assessment and Plan Assessment & Plan (1) Dysplastic nevi: Comment: on face Code(s): D23.9 - Other benign neoplasm of skin, unspecified (2) Annual physical exam: Code(s): Z00.00 - Encounter for general adult medical examination without abnormal findings Plan: Well-balanced diet and regular physical activity the patient. Patient will be referred to GI for colonoscopy. She follows up with cotton ball machine tender for Pap smear. (3) Shoulder pain, left: Code(s): M25.512 - Pain in left shoulder Plan: refer to physical therapy (4) Atypical ductal hyperplasia of left breast: Comment: Status post lumpectomy 06/23, on [place] [facility] Code(s): N60.92 - Unspecified benign mammary dysplasia of left breast Plan: Continue tamoxifen follow-up with Oncology Orders: Orders PT Evaluation and Treatment Today M25.512 - Pain in left shoulder Referrals Dermatology Referral D23.9 - Other benign neoplasm of skin, unspecified Gastroenterology Referral Z00.00 - Encounter for general adult medical examination without abnormal findings Coding Level of Care Code Est Pt Prev Care 40-64y(51850) Diagnoses Dysplastic nevi D23.9 Annual physical exam Z00.00 Shoulder pain, left M25.512 Atypical ductal hyperplasia of left breast N60.92
== END 2023-04-16 14:46 | disposition home or self-care (01) ==
PROVIDERS: PCP Internal Medicine; Visit Provider Internal Medicine
DX: D23.9 Other benign neoplasm of skin, unspecified (principal); Z00.00 Encounter for general adult medical examination without abnormal findings; M25.512 Pain in left shoulder; N60.92 Unspecified benign mammary dysplasia of left breast
CPT/HCPCS: 99396

== ENCOUNTER 2023-04-18 14:47 | Outpatient (RCR) | payer OTHER, SELFPAY ==
--- NOTE | 2023-04-18 16:28 | MHC.PT.EP ---
[facility] [place] Office [place] Office [place] Office [address] [phone] F: [phone] F: [phone] F: [phone] F: [phone] Physical Therapy Plan of Care Date of Evaluation: Date of Surgery: Diagnosis: Pain in L shoulder. Assessment: Pt is a 47 y/o female who is referred to PT for reval and treat of L shoulder pain resulting in decreased tolerance of ability for work, lifting, sleep, and reaching behind her back secondary to limited shoulder ROM, decreased shoulder strength, and pain. Pt is motivated and is deemed an appropriate candidate to receive skinned PT services to address their physical impairments in order to improve their functional ability. Frequency and Duration: The patient will be seen 2x/wk x5wks Short Term Goals: Initiate HEP Decrease baseline pain to <5/10: initial 6/10 Group Home Goals: [place] with HEP Pt will be able to lay on her L side without pain: initial 6/10 pain Pt will be able to reach for an object on a high shelf without pain: initial 4/10 pain Pt will be able to reach behind her back without pain: initial 5/10 pain Pt will improve SPADI by at least at least 13 points: initial 55/130 Treatment Plan: Modalities to reduce pain, spasms and effusion. Manual therapy to restore motion and function. Therapeutic exercise to improve strength and flexibility. Neuromuscular re-education for posture and balance. Therapeutic activities to return to functional activities of daily living. Electronically signed by: Geovani Juarez PT. Please sign and return to therapist. Thank you for your referral.
--- NOTE | 2023-05-07 16:23 | MHC.PT.DC ---
[facility] [place] Office [place] Office [place] Office [address] [phone] F: [phone] F: [phone] F: [phone] F: [phone] Physical Therapy Discharge Report Diagnosis: Pain in L shoulder. Date of Surgery: Date of Evaluation: 04/18/23 Date of Discharge: 05/07/23 Treatments to Date: 1 Cancellations to Date: No Shows to Date: Discharge Status: Visit Non-compliance Discharge Summary: Pt is being discharged per attendance policy. Electronically signed by: Geovani Juarez PT Please sign and return to therapist. Thank you for your referral.
== END 2023-05-07 16:24 | disposition home or self-care (01) ==
LOC: HO.PTCHIC 14:47
PROVIDERS: PCP Internal Medicine; Visit Provider Internal Medicine
DX: M25.512 Pain in left shoulder (principal)
CPT/HCPCS: 97110; 97161

== ENCOUNTER 2023-05-03 09:15 | Outpatient (REF) | payer OTHER, SELFPAY ==
--- NOTE | ~2023-05-03 | MM_ITS ---
EXAMINATION: MM SCREENING DIGITAL BREAST TOMOSYNTHESIS, BILATERAL CLINICAL INFORMATION: Screening. Asymptomatic. The patient is status post percutaneous biopsy and subsequent excision in 2021 for atypical ductal hyperplasia of the upper outer quadrant of the left breast. COMPARISON: Mammography: This study is compared with prior exams dating back to TECHNIQUE: Digital breast tomosynthesis is performed in both the craniocaudal and mediolateral oblique views along with computer-aided detection (CAD). Synthesized 2D images are generated from the tomosynthesis. FINDINGS: There are scattered areas of fibroglandular density (ACR BI-RADS breast composition Category b). There are no significant masses, abnormal calcifications, or other abnormalities. There are postsurgical changes in the upper outer quadrant of the left breast. MM/MM tomosynthesis screening BI IMPRESSION: No mammographic evidence of malignancy. ASSESSMENT: BI-RADS BI-RADS 2 - Benign Findings RECOMMENDATION: Routine annual mammography screening. 1 year F/U This examination should not preclude the clinical evaluation of a suspicious palpable abnormality. This patient's information was entered into a reminder system with a target due date for their next mammogram.
== END 2023-05-03 09:16 | disposition home or self-care (01) ==
LOC: HO.MAMMO 09:15
PROVIDERS: PCP Internal Medicine; Visit Provider Internal Medicine
DX: Z12.31 Encounter for screening mammogram for malignant neoplasm of breast (principal)
CPT/HCPCS: 77063; 77067

== ENCOUNTER → 2023-05-03 09:15 | Outpatient (BNV) | payer OTHER, SELFPAY | PROVIDERS: PCP Internal Medicine; Visit Provider Radiology Diagnostic Radiology | DX: Z12.31 Encounter for screening mammogram for malignant neoplasm of breast (principal) | CPT/HCPCS: 77063; 77067 ==

== ENCOUNTER 2023-09-16 07:55 | Outpatient (REF) | payer OTHER, SELFPAY | END 2023-09-16 07:56 | disposition home or self-care (01) | LOC: HO.LNP 07:55 | PROVIDERS: PCP Internal Medicine; Visit Provider Physician Assistant | DX: Z01.818 Encounter for other preprocedural examination (principal); A04.8 Other specified bacterial intestinal infections; R10.13 Epigastric pain | CPT/HCPCS: 87338 ==

== ENCOUNTER 2023-09-16 07:55 | Outpatient (AMB) | payer OTHER, SELFPAY ==
--- NOTE | 2023-09-16 08:16 | A.OFFVIS_ITS ---
Intake Vital Signs 09/16/23 08:18 Height 5 ft 2 in Weight 145 lb 8.081 oz BMI 26.6 BP 139/83 Blood Pressure Location Lt brachial Position Sitting Pulse 88 Intake Visit Reasons: Colonoscopy screening Intake Note: Marilin presents in the office as a colonoscopy screening. CC: She states that she is just due for a colonoscopy - no colon cancer in the family and she has never had a colonoscopy. Disability Liaison Officer Required: Yes Disability Liaison Officer Name: [id number] Payton Allergies No Known Allergies Allergy (Verified 09/16/23 08:22) Medication List - Last Reconciled 09/16/23 by Yanira Ro PA-C bisacodyl (Dulcolax (bisacodyl)) 20 mg (4 x 5 mg) PO ONCE 1 day levonorgestrel (Mirena) 20 mcg intrauterine DAILY polyethylene glycol 3350 (Miralax) 238 grams PO ONCE PRN 1 day tamoxifen 20 mg PO DAILY HPI HPI Comments History of Present Illness Details A 48 y/o female referred for index screening -no known family history of colon cancer, she has no issues with her bowel Appetite is good-occasional dyspepsia, Bowels normal- No cardiac or respiratory issues She stays active, she works 2 jobs No nausea, vomiting, hematemesis, hematochezia fever or chills PFSH Medical History Anemia Annual physical exam Dysmenorrhea Surgical History History of lumpectomy of left breast (06/13/22) Family History Father Throat cancer Mother No problems noted. 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 Current occupational exposures/hazards: No Cognitive needs: No Hearing needs: No Vision needs: Yes Female Reproductive History Menstrual Age of Menarche: 16 Review of Systems Const All systems reviewed & are unremarkable except as noted in HPI and below Card Denies chest pain and Denies dyspnea Resp Denies dyspnea GI Denies abdominal pain and Reports dyspepsia Physical Exam Vital Signs: Last Vital Signs Pulse 88 09/16/23 08:18 BP 139/83 09/16/23 08:18 BMI result Body Mass Index 26.6 Const General: cooperative, healthy appearing, comfortable and well groomed Orientation/consciousness: patient oriented x3 Limitations: language barrier Eyes Sclerae: sclerae normal Resp Effort & Inspection: normal respiratory effort and able to speak in complete sentences Auscultation: clear to auscultation bilaterally, no rales, no rhonchi and no wheezes Neuro General: patient oriented x3 Psych Appearance: well kempt Mental Status: mental status grossly normal Speech and movement: Normal speech and movement present and Clear speech present Attitude: cooperative Thought process: Normal thought process present Thought content: Normal thought content present Assessment & Plan Assessment & Plan (1) Encounter for screening colonoscopy: Comment: Discussed procedure, rare risks need for escorted due to anesthesia Code(s): Z12.11 - Encounter for screening for malignant neoplasm of colon Plan: Index screening colonoscopy (2) Dyspepsia: Comment: Symptoms vague, being tested for H pylori-will do the same Code(s): R10.13 - Epigastric pain Plan: H pylori stool antigen if positive will treat Plan Stool for H pylori Index screening colonoscopy MiraLax Gatorade prep Orders: Orders H pylori Ag Stool Today A04.8 - Other specified bacterial intestinal infections Colonoscopy - GI Use Only Today Z12.11 - Encounter for screening for malignant neoplasm of colon Medications: New bisacodyl (Dulcolax (bisacodyl)) Day before procedure, prep day Take 4 tablets by mouth upon awakening followed by large glass of water 20 mg (4 x 5 mg) PO ONCE 4 tabs 0RF colonoscopy prep 1 day Z12.11 - Encounter for screening for malignant neoplasm of colon polyethylene glycol 3350 (Miralax) Take as directed by mouth the day before your procedure. 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
[2023-09-16 08:18] VITALS: BP 139/83; PULSE 88; BMI 26.6
== END 2023-09-16 08:52 | disposition home or self-care (01) ==
PROVIDERS: PCP Internal Medicine; Visit Provider Physician Assistant
DX: Z12.11 Encounter for screening for malignant neoplasm of colon (principal); R10.13 Epigastric pain; Z01.818 Encounter for other preprocedural examination
CPT/HCPCS: 99203

== ENCOUNTER 2023-10-29 15:57 | Outpatient (AMB) | payer OTHER, SELFPAY ==
--- NOTE | 2023-10-29 15:58 | MHC.OFFVIS ---
Intake Vital Signs 10/29/23 16:02 Height 5 ft 2 in Weight 151 lb 2 oz BMI 27.6 BP 137/67 Blood Pressure Location Lt brachial Position Sitting Pulse 82 Intake Visit Reasons: 6 m f/u breast exam Intake Note: Patient is seen in office for 6 month follow up visit, breast exam. Patient c/o:denies any concerns or changes since last visit mm:05/03/23 Aged Or Disabled Carer: Aged Or Disabled Carer Present Accompanied by: Son Allergies No Known Allergies Allergy (Verified 10/29/23 16:02) Medication List - Last Reconciled 10/29/23 by Frankie Giron MD bisacodyl (Dulcolax (bisacodyl)) 20 mg (4 x 5 mg) PO ONCE 1 day bismuth subsalicylate (Bismuth) 2 tabs PO QID 14 days levonorgestrel (Mirena) 20 mcg intrauterine DAILY metronidazole 250 mg PO QID 14 days omeprazole 20 mg PO BID 14 days polyethylene glycol 3350 (Miralax) 238 grams PO ONCE PRN 1 day tamoxifen 20 mg PO DAILY tamoxifen 20 mg PO DAILY tetracycline 500 mg PO Q6H 14 days HPI HPI Comments History of Present Illness Details 48-year-old female patient presenting with a screening mammogram of 04/30/2022 with additional views obtained 05/09/2022 which revealed a cluster of calcifications grouped in the 12:30 location of the left breast. This was new from her baseline mammogram the previous year and felt to be suspicious for malignancy. She denied a previous history of breast problems or breast surgery. Her family history is negative for breast cancer. She is and breastfed her children. She denies difficulties with breast-feeding or breast infections. She underwent a stereotactic guided core biopsy on 05/17/2022. Pathology revealed: Breast tissue with markedly atypical epithelium and associated microcalcifications, background fibrocystic changes. Atypical focus is quite small but resents at least atypical ductal hyperplasia. Cannot rule out ductal carcinoma in-situ. No invasive carcinoma is seen in the current sample. She underwent lumpectomy with needle localization on 06/13/2022. Pathology revealed a small focus of atypical ductal hyperplasia with negative margins; background biopsy site and fibrocystic changes. Negative for in-situ or invasive carcinoma. She was subsequently evaluated by Medical Oncology and started on tamoxifen. She is tolerating this well but does report some muscle aches and joint pain. Her most recent mammogram performed on 05/03/2023 revealed no mammographic evidence of malignancy (BI-RADS 2). Follow-up mammogram in 1 year is recommended. [facility] Medical History Anemia Annual physical exam Dysmenorrhea Surgical History History of lumpectomy of left breast (06/13/22) Family History Father Throat cancer Mother No problems noted. 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 Current occupational exposures/hazards: No Cognitive needs: No Hearing needs: No Vision needs: Yes Female Reproductive History Menstrual Age of Menarche: 16 Review of Systems Const All systems reviewed & are unremarkable except as noted in HPI and below Denies chills, Denies fever(s), Denies headache(s), Denies poor appetite and Denies weakness ENT Denies headache(s) Card Denies chest pain, Denies irregular heart rhythm, Denies palpitations and Denies dyspnea Resp Denies cough, Denies excessive phlegm production and Denies dyspnea GI Denies abdominal pain, Denies bloating, Denies change in bowel habits, Denies constipation, Denies heartburn, Denies diarrhea, Denies nausea and Denies vomiting Denies urinary frequency Musc Denies back pain, Denies muscle weakness and Denies numbness Skin/Breast Denies changing lesions and Denies unusual bruising Neuro Denies headache(s), Denies numbness, Denies paresthesias and Denies weakness Psych Denies anxiety and Denies depression Endo Denies palpitations Jai/Lymph Denies lymphadenopathy Physical Exam Vital Signs: Last Vital Signs Pulse 82 10/29/23 16:02 BP 137/67 10/29/23 16:02 BMI result Body Mass Index 27.6 Const General: cooperative and no acute distress Nutritional Appearance: well nourished Orientation/consciousness: patient oriented x3 Limitations: no limitations HEENT Head: Yes normocephalic and Yes atraumatic Ears: hearing grossly normal bilaterally Chest Other: Left breast: Well-healed incision in the periareolar location without redness or discharge. Slight retraction of the incision is noted. No new palpable mass, skin change, or enlarged lymph nodes are appreciated. Right breast: No skin change, nipple discharge, palpable mass, or enlarged lymph nodes. Chest/axillae images: 1. Incision left breast neelam-areolar upper outer quadrant Resp Effort & Inspection: normal respiratory effort, no audible wheezes, no cough and no respiratory distress Cardio Jugular venous distension: no JVD GI Inspection: Yes normal to inspection Skin Other: Warm, dry, no rash Neuro General: patient oriented x3 Extrem General: Yes no clubbing, cyanosis or edema Assessment & Plan Assessment & Plan (1) Atypical ductal hyperplasia of left breast: Comment: Status post lumpectomy 06/23, on Tamoxifen f/u [facility] oncology Code(s): N60.92 - Unspecified benign mammary dysplasia of left breast Plan 48-year-old female patient presenting with atypical ductal hyperplasia of the left breast. Subsequent lumpectomy confirmed atypical ductal hyperplasia involving a small focus with no evidence of DCIS or invasive carcinoma. She was evaluated by Medical Oncology and started on tamoxifen. Her most recent mammogram of 05/03/2023 reveals no mammographic evidence of malignancy (BI-RADS 2). Follow-up mammogram in 1 year is recommended. Examination today reveals no suspicious findings in either breast. There is a slight scar retraction noted in the left breast. I suggested she return in approximately 6 months for follow-up examination. She is welcome to call sooner for any new concerns. Coding Level of Care Code Est Pt Level 3 (38740) Diagnoses Atypical ductal hyperplasia of left breast N60.92
[2023-10-29 16:02] VITALS: BP 137/67; PULSE 82; BMI 27.6
== END 2023-10-29 16:14 | disposition home or self-care (01) ==
PROVIDERS: PCP Internal Medicine; Visit Provider Surgery
DX: N60.92 Unspecified benign mammary dysplasia of left breast (principal)
CPT/HCPCS: 99213

== ENCOUNTER → 2023-10-29 15:57 | Outpatient (BNVA) | payer OTHER, SELFPAY | PROVIDERS: PCP Internal Medicine; Visit Provider Surgery ==

== ENCOUNTER 2024-02-10 11:48 | Day surgery (SDC) | payer OTHER, SELFPAY ==
--- NOTE | 2024-02-10 11:30 | MHC.SHP ---
Pre-Procedural Eval Section A - 24 Hr Update-Section A only Date of Service: 02/10/24 The patient is an INPATIENT: No The patient has been examined within 24 hours of the surgical procedure. The History & Physical has been completed within 30 days and I have reviewed it.: No Section B - Complete if H&P > 30 days Chief Complaint: Colon cancer screening Relevant Family History (Specify if Yes): No Relevant Social History: Tobacco Use (Former smoker) Present Medications: see Short Stay Collaborative assessment Medical History: Significant History (anemia, Dysmenorrhea) History of Previous Operations: Relevant previous surgery/procedure and date(s) (History of lumpectomy of left breast (06/13/22)) Allergies: Allergies Allergy/AdvReac Type Severity Reaction Status Date / Time No Known Allergies Allergy Verified 10/29/23 16:02 Review of Systems Sugical H&P ROS: Negative: Constitution, Cardiovascular, Respiratory and Gastrointestinal Exam Surgical H&P Exam: Normal: Heart, Normal: Lungs, Normal: Extremities and Normal: Abdomen Plan Diagnosis/Plan: Unchanged I have reviewed the history and physical and performed a pertinent physical examination on my patient. No changes have occurred unless specified. Time Spent With Patient Time: Total time managing care of this patient today ____ minutes.
[2024-02-10 12:04] VITALS: BP 127/80; PULSE 96; RESP 16; TEMP 36.6; O2SAT 99; BMI 28.2
[2024-02-10 12:12] LABS: UPreg QC Valid YES; Urine Pregnancy NEGATIVE (NEGATIVE)
[2024-02-10] MEDS: Lactated Ringers 1,000 ML 100 ML IVCONT (12:25)
--- NOTE | 2024-02-10 12:33 | HO.ANESPROP2 ---
[facility] Active Problems Active Problems: All Active Problems Encounter for screening colonoscopy (Acute) Dyspepsia (Acute) Shoulder pain, left (Acute) Dysplastic nevi (Acute) Atypical ductal hyperplasia of left breast (Acute) Abnormal mammogram of left breast (Acute) Hx of mammogram (Acute) Normal pelvic exam (Acute) Post covid-19 condition, unspecified (Acute) Anemia (Acute) Annual physical exam (Acute) Dysmenorrhea (Acute) Past Medical History Medical History Anemia Annual physical exam Dysmenorrhea Family History Family History Father Throat cancer Mother No problems noted. Family history of problems with anesthesia: No Surgical History Surgical History (Updated 02/10/24 @ 12:13 by Graciela Kiran) History of lumpectomy of left breast (06/13/22) History of Problems with Anesthesia: Unobtainable Social History Social History Household Members: Spouse and Children Household Members Other:: works in the [employer], Housing: House Are you a primary transitional care manager to a significant other at home: No Do you presently have visiting nurse or other home services: No Alcohol intake: current Alcohol intake frequency: holidays/special occasions only Patient Tobacco Use Status: Former Tobacco user Cigarette Packs Per Day: 5 Years Smoked: 5 e-Cigarette/Vaping Use: Never Used Second Hand Smoke Exposure: No Use of substances other than those prescribed or required for medical reasons: No Are you DNR?: No Advance Directives: No Advance Directives Information Provided: Yes service: No Current occupational status: employed 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 Current occupational exposures/hazards: No Cognitive needs: No Hearing needs: No Vision needs: Yes Meds Allergies Allergy/AdvReac Type Severity Reaction Status Date / Time No Known Allergies Allergy Verified 10/29/23 16:02 Active Medications: Current Medications Lactated Ringer's (Lr) 1,000 mls @ 100 mls/hr IVCONT .Q10H SONIYA Last Admin: 02/10/24 12:25 Dose: 100 mls/hr Home Medications ?Medication ?Instructions ?Recorded ?Confirmed ?Last Taken ?Type levonorgestrel 21 mcg/24 hours (8 20 mcg intrauterine DAILY 09/18/22 10/29/23 Unknown History yrs) 52 mg intrauterine device (Mirena) tamoxifen 20 mg tablet 20 mg PO DAILY 09/25/22 10/29/23 Unknown History Exam Height,Weight and Vital Signs: Height 5 ft 2 in Weight 70 kg Last Vital Signs Temp 97.8 F 02/10/24 12:04 Pulse 96 02/10/24 12:04 Resp 16 02/10/24 12:04 BP 127/80 02/10/24 12:04 Pulse Ox 99 02/10/24 12:04 O2 Del Method Room Air 02/10/24 12:04 Pertinent Lab Results Pertinent Lab Results: Laboratory Tests 02/10/24 11:57 Urine Test NEGATIVE Airway Mallampati Class: II TM Dist: >3cm Neck ROM: Full Heart: rrr Lungs: cta Assessment and Plan Assessment Anesthesia Assessment: Anesthesia Plan Discussed and Chart Reviewed Final Anesthetic Review Family History of Problems with Anesthesia: No History of Problems with Anesthesia: Unobtainable NPO: Yes ASA Class: II Final Preanesthetic Review: No Changes in Pt Med Stat, Meds/Allgs Chart Reviewed and Consent Obtained/Reviewed Patient Risk: Low Procedure Risk: Low Anesthetic Plan Anesthetic Plan: MAC: Disposition: Standard PACU
[2024-02-10 13:12] VITALS: BP 95/62; PULSE 81; RESP 16; TEMP 36.2; O2SAT 98
--- NOTE | 2024-02-10 13:12 | HO.OPN-COLON ---
Colonoscopy Operative Note Operative Note Date of Service: 02/10/24 Narrative: COLONOSCOPY TILL CECUM WITH BIOPSIES Pre-op diagnosis: Colon cancer screening, (Ist colonoscopy). Post-op diagnosis:? Colon polyp, Diverticulosis, hemorrhoids Endoscopist:? Bo Vargas MD Anesthesia:?MAC Consent: Indications for the procedure and potential complications of bleeding, perforation, reaction to medications and missed diagnosis were discussed with the patient with the help of a Wolof assistant speech language pathologist and informed consent was obtained. Instrument: Olympus PCF H 190 L variable stiffness pediatric colonoscope Monitoring: Vital signs and clinical assessment, intermittent blood pressure monitoring, continuous EKG monitoring, Pulse oximetry and Carbon Dioxide monitoring were done throughout the procedure. Please see anesthesia flowsheet. Colon withdrawl time was 15 minutes. Procedure: The patient was placed in the left lateral decubitis position and pre-procedure medications were administered. After a digital rectal examination of the ano-rectum, the video colonoscope was inserted into the rectum and advanced through the colon to the cecum. The colonoscope was slowly withdrawn in a retrograde panoramic fashion and the colon mucosa was carefully examined including a retroflexed view of the rectum. Findings and interventions are described below. Procedure Difficulty: without difficulty. Colon was long and there was some loop formation Findings: Terminal Ileum: Not evaluated Cecum: Normal Ascending Colon: Normal Transverse Colon: Normal Descending Colon: Normal Sigmoid Colon: A 2-3 mm diminutive appearing polyp - removed with a cold biopsy. Moderate diverticulosis Rectum: Normal Ano-rectum: Small internal hemorrhoids and hypertrophied anal papillae Colon preparation: Excellent [place] Bowel Preparation Scale Right colon; 3 Transverse colon: 3 Left colon; 3 (0 = Unprepared colon segment with mucosa not seen due to solid stool that cannot be cleared. 1 = Portion of mucosa of the colon segment seen, but other areas of the colon segment not well seen due to staining, residual stool and/or opaque liquid. 2 = Minor amount of residual staining, small fragments of stool and/or opaque liquid, but mucosa of colon segment seen well. 3 = Entire mucosa of colon segment seen well with no residual staining, small fragments of stool or opaque liquid) Impression and Post Procedure Diagnosis: Colonoscopy Findings: One small polyp was removed Moderate diverticulosis seen in the sigmoid colon Small hemorrhoids on retroflexed exam. Plan: I will send a letter with biopsy results. Repeat Colonoscopy in 5 years if polyp is adenomatous and 10 year if polyp is hyperplastic. Above findings were reviewed with the patient with the help of Wolof assistant speech language pathologist and relevant handouts were given and the discharge area.
[2024-02-10 13:26] VITALS: BP 111/65; PULSE 69; RESP 18; TEMP 36.2; O2SAT 99
== END 2024-02-10 13:50 | disposition home or self-care (01) ==
PROVIDERS: Anesthesiology; PCP Internal Medicine; Visit Provider Internal Medicine Gastroenterology
PROC: 0DJD8ZZ Inspection of Lower Intestinal Tract, Via Natural or Artificial Opening Endoscopic (ICD-10-PCS; CPT 45378; principal; 2024-02-10 13:00)
DX: Z12.11 Encounter for screening for malignant neoplasm of colon (principal); K63.5 Polyp of colon; K57.30 Diverticulosis of large intestine without perforation or abscess without bleeding; K64.8 Other hemorrhoids; K64.4 Residual hemorrhoidal skin tags; K56.2 Volvulus
CPT/HCPCS: 45380; 81025; 88305; J2704

== ENCOUNTER → 2024-02-10 11:48 | Outpatient (BNV) | payer OTHER, SELFPAY | PROVIDERS: PCP Internal Medicine; Visit Provider Internal Medicine Gastroenterology | DX: Z12.11 Encounter for screening for malignant neoplasm of colon (principal); K63.5 Polyp of colon; K57.30 Diverticulosis of large intestine without perforation or abscess without bleeding; K64.8 Other hemorrhoids | CPT/HCPCS: 45380 ==

== ENCOUNTER 2024-02-24 08:20 | Outpatient (AMB) | payer OTHER, SELFPAY ==
--- NOTE | 2024-02-24 08:21 | MHC.OFFVIS ---
Vital Signs 02/24/24 08:26 Height 5 ft 2 in Weight 152 lb 8.958 oz BMI 27.9 BP 108/50 L Blood Pressure Location Lt brachial Position Sitting Pulse 70 Pulse Source Pulse Oximeter Pulse Oximetry (%) 100 Oxygen Delivery Method Room Air Intake Visit Reasons: S/P [place] Intake Note: Marilin presents in office today for a scheduled post colo FUV. CC: Pt reports new onset of LQ abdominal pain B/L. Onset was approximately 24 hours following s/p. Pt reports colo s/p was approximately two weeks ago. Motor Vehicle Escort Driver Required: Yes Motor Vehicle Escort Driver Services: Motor Vehicle Escort Driver Offered & Declined Accompanied by: Son Allergies No Known Allergies Allergy (Verified 02/24/24 08:25) HPI HPI S/P [place]: Details: LAST VISIT: With Jackelyn Ro 1) Encounter for screening colonoscopy: Comment: Discussed procedure, rare risks need for escorted due to anesthesia Code(s): Z12.11 - Encounter for screening for malignant neoplasm of colon Plan: Index screening colonoscopy (2) Dyspepsia: Comment: Symptoms vague, being tested for H pylori-will do the same Code(s): R10.13 - Epigastric pain Plan: H pylori stool antigen if positive will treat Plan Stool for H pylori Index screening colonoscopy MiraLax Gatorade prep COLONOSCOPY Findings: Terminal Ileum: Not evaluated Cecum: Normal Ascending Colon: Normal Transverse Colon: Normal Descending Colon: Normal Sigmoid Colon: A 2-3 mm diminutive appearing polyp - removed with a cold biopsy. Moderate diverticulosis Rectum: Normal Ano-rectum: Small internal hemorrhoids and hypertrophied anal papillae Colon preparation: Excellent [place] Bowel Preparation Scale Right colon; 3 Transverse colon: 3 Left colon; 3 (0 = Unprepared colon segment with mucosa not seen due to solid stool that cannot be cleared. 1 = Portion of mucosa of the colon segment seen, but other areas of the colon segment not well seen due to staining, residual stool and/or opaque liquid. 2 = Minor amount of residual staining, small fragments of stool and/or opaque liquid, but mucosa of colon segment seen well. 3 = Entire mucosa of colon segment seen well with no residual staining, small fragments of stool or opaque liquid) Impression and Post Procedure Diagnosis: Colonoscopy Findings: One small polyp was removed Moderate diverticulosis seen in the sigmoid colon Small hemorrhoids on retroflexed exam. Plan: I will send a letter with biopsy results. Repeat Colonoscopy in 5 years if polyp is adenomatous and 10 year if polyp is hyperplastic. Above findings were reviewed with the patient with the help of Wolof american sign language interpreter and relevant handouts were given and the discharge area. PATHOLOGY RESULTS Diagnosis Colon, sigmoid, polypectomy: Colonic mucosa with prominent lymphoid aggregates TODAY'S VISIT Patient is here today for follow-up and to discuss colonoscopy results. Patient denies any ill effects from the prep, anesthesia or procedure itself. Patient reports that has been feeling well. Occasional postprandial abdominal bloating depending on what she eats. Patient reports that she is moving bowels well without any issues. Patient denies any dyspepsia, dysphagia or odynophagia. Patient denies any melena, hematochezia. Patient denies any GI concerning. [facility] Medical History (Updated 02/24/24 @ 10:18 by Domenica Og, [facility]) Diverticulosis Anemia Annual physical exam Dysmenorrhea Surgical History Hx of colonoscopy History of lumpectomy of left breast (06/13/22) Family History Father Throat cancer Mother No problems noted. 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 Current occupational exposures/hazards: No Cognitive needs: No Hearing needs: No Vision needs: Yes Female Reproductive History Menstrual Age of Menarche: 16 Review of Systems Const Denies weight gain and Denies weight loss ENT Reports no additional complaints, Denies dysphagia and Denies odynophagia Card Reports no additional complaints Resp Reports no additional complaints GI Denies abdominal pain, Denies belching, Denies melena, Reports bloating, Denies change in bowel habits, Denies dysphagia, Denies excessive flatus, Denies dyspepsia, Denies heartburn, Denies diarrhea, Denies loose stools, Denies nausea, Denies odynophagia and Denies vomiting Reports no additional complaints Musc Reports no additional complaints Neuro Reports no additional complaints Psych Reports no additional complaints Endo Reports no additional complaints Physical Exam Vital Signs: Last Vital Signs Pulse 70 02/24/24 08:26 BP 108/50 L 02/24/24 08:26 Pulse Ox 100 02/24/24 08:26 Oxygen Delivery Method Room Air 02/24/24 08:26 BMI result Body Mass Index 27.9 Const General: healthy appearing, no acute distress and well developed Nutritional Appearance: well nourished Orientation/consciousness: patient oriented x3 Resp Effort & Inspection: normal respiratory effort, able to speak in complete sentences, no tracheal deviation and symmetric chest movement Auscultation: clear to auscultation bilaterally Cardio Rate: regular rate GI Inspection: Yes normal to inspection and No distended Palpation (GI): Soft to palpation, not firm, nontender and No hepatosplenomegaly present Auscultation: normal bowel sounds General: Yes no CVA tenderness Back/Spine/Pelvis Back: no CVA tenderness Skin General skin exam: elasticity normal, turgor normal and dry skin Neuro General: patient oriented x3 Psych Appearance: grossly normal Mental Status: mental status grossly normal Assessment & Plan Assessment & Plan (1) Status post colonoscopy: Code(s): Z98.890 - Other specified postprocedural states (2) Diverticulosis: Code(s): K57.90 - Diverticulosis of intestine, part unspecified, without perforation or abscess without bleeding Category: Medical Plan Colonoscopy in 10 years, sooner if clinically necessary. Diverticulosis of sigmoid colon. Patient was encouraged to increase fiber in her diet. Patient may also take probiotics. Patient will follow-up in the office on as needed basis. Coding Level of Care Code Est Pt Level 3 (54022) Diagnoses Status post colonoscopy Z98.890 Diverticulosis K57.90 Time Spent (min) 25 Comment 15 minutes spent with patient and additional 10 minutes spent reviewing her records
[2024-02-24 08:26] VITALS: BP 108/50; PULSE 70; O2SAT 100; BMI 27.9
== END 2024-02-24 08:47 | disposition home or self-care (01) ==
LOC: HO.HGI 08:20
PROVIDERS: PCP Internal Medicine; Visit Provider Nurse Practitioner Family
DX: Z98.890 Other specified postprocedural states (principal); K57.90 Diverticulosis of intestine, part unspecified, without perforation or abscess without bleeding
CPT/HCPCS: 99213

== ENCOUNTER → 2024-02-24 08:20 | Outpatient (BNVA) | payer OTHER, SELFPAY | PROVIDERS: PCP Internal Medicine; Visit Provider Nurse Practitioner Family ==

== ENCOUNTER 2024-04-28 09:30 | Outpatient (AMB) | payer OTHER, SELFPAY ==
--- NOTE | 2024-04-28 09:39 | A.OFFVIS_ITS ---
Vital Signs 3 04/28/24 09:40 Height 5 ft 2 in Intake Visit Reasons: 6 m f/u breast exam Intake Note: Patient is seen in office for 6 month follow up visit, breast exam. 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 Accompanied by: Son Allergies No Known Allergies Allergy (Verified 04/28/24 09:41) Medication List - Last Reconciled 04/28/24 by Frankie Giron MD bismuth subsalicylate (Bismuth) 2 tabs PO QID 14 days levonorgestrel (Mirena) 20 mcg intrauterine DAILY metronidazole 250 mg PO QID 14 days omeprazole 20 mg PO BID 14 days tamoxifen 20 mg PO DAILY tetracycline 500 mg PO Q6H 14 days HPI Comments Details: 48-year-old female patient presenting with a screening mammogram of 04/30/2022 with additional views obtained 05/09/2022 which revealed a cluster of calcifications grouped in the 12:30 location of the left breast. This was new from her baseline mammogram the previous year and felt to be suspicious for malignancy. She denied a previous history of breast problems or breast surgery. Her family history is negative for breast cancer. She is and breastfed her children. She denies difficulties with breast-feeding or breast infections. She underwent a stereotactic guided core biopsy on 05/17/2022. Pathology revealed: Breast tissue with markedly atypical epithelium and associated microcalcifications, background fibrocystic changes. Atypical focus is quite small but resents at least atypical ductal hyperplasia. Cannot rule out ductal carcinoma in-situ. No invasive carcinoma is seen in the current sample. She underwent lumpectomy with needle localization on 06/13/2022. Pathology revealed a small focus of atypical ductal hyperplasia with negative margins; background biopsy site and fibrocystic changes. Negative for in-situ or invasive carcinoma. She was subsequently evaluated by Medical Oncology and started on tamoxifen. She is tolerating this well. She does complain of left shoulder pain. Her most recent mammogram performed on 05/03/2023 revealed no mammographic evidence of malignancy (BI-RADS 2). Follow-up mammogram is scheduled for 05/08/2024. [facility] Medical History Diverticulosis Anemia Annual physical exam Dysmenorrhea Surgical History Hx of colonoscopy History of lumpectomy of left breast (06/13/22) Family History Father Throat cancer Mother No problems noted. 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 Current occupational exposures/hazards: No Cognitive needs: No Hearing needs: No Vision needs: Yes Female Reproductive History Menstrual Age of Menarche: 16 Review of Systems Const All systems reviewed & are unremarkable except as noted in HPI and below Denies chills, Denies fever(s), Denies headache(s), Denies poor appetite and Denies weakness ENT Denies headache(s) Card Denies chest pain, Denies irregular heart rhythm, Denies palpitations and Denies dyspnea Resp Denies cough, Denies excessive phlegm production and Denies dyspnea GI Denies abdominal pain, Denies bloating, Denies change in bowel habits, Denies constipation, Denies heartburn, Denies diarrhea, Denies nausea and Denies vomiting Denies urinary frequency Musc Denies back pain, Denies muscle weakness and Denies numbness Skin/Breast Denies changing lesions and Denies unusual bruising Neuro Denies headache(s), Denies numbness, Denies paresthesias and Denies weakness Psych Denies anxiety and Denies depression Endo Denies palpitations Jai/Lymph Denies lymphadenopathy Physical Exam Const General: cooperative and no acute distress Nutritional Appearance: well nourished Orientation/consciousness: patient oriented x3 Limitations: no limitations HEENT Head: Yes normocephalic and Yes atraumatic Ears: hearing grossly normal bilaterally Chest Other: Left breast: Well-healed incision in the periareolar location without redness or discharge. Slight retraction of the incision is noted. No new palpable mass, skin change, or enlarged lymph nodes are appreciated. Right breast: No skin change, nipple discharge, palpable mass, or enlarged lymph nodes. Chest/axillae images: 2 1. Incision upper outer quadrant left breast, Kaylan areolar Resp Effort & Inspection: normal respiratory effort, no audible wheezes, no cough and no respiratory distress Cardio Jugular venous distension: no JVD GI Inspection: Yes normal to inspection Skin Other: Warm, dry, no rash Neuro Other: Mobility Assessment: 1. 3 meter assessment time (seconds) 4 2. Gait observations: Normal balance and gait General: patient oriented x3 Extrem General: Yes no clubbing, cyanosis or edema Assessment & Plan Assessment & Plan (1) Atypical ductal hyperplasia of left breast: Comment: Status post lumpectomy 06/23, on Tamoxifen f/u [facility] oncology Code(s): N60.92 - Unspecified benign mammary dysplasia of left breast Category: Medical Plan 48-year-old female patient presenting with atypical ductal hyperplasia of the left breast. Subsequent lumpectomy confirmed atypical ductal hyperplasia involving a small focus with no evidence of DCIS or invasive carcinoma. She was evaluated by Medical Oncology and started on tamoxifen. Her most recent mammogram of 05/03/2023 reveals no mammographic evidence of malignancy (BI-RADS 2). Follow-up mammogram is scheduled for 05/08/2024. Examination today reveals no suspicious findings in either breast. There is a slight scar retraction noted in the left breast. I suggested she return in approximately 6 months for follow-up examination. She is welcome to call sooner for any new concerns. Coding Level of Care Code Est Pt Level 3 (66162) Diagnoses Atypical ductal hyperplasia of left breast N60.92
== END 2024-04-28 09:50 | disposition home or self-care (01) ==
PROVIDERS: PCP Internal Medicine; Visit Provider Surgery
DX: N60.92 Unspecified benign mammary dysplasia of left breast (principal)
CPT/HCPCS: 99213

== ENCOUNTER → 2024-04-28 09:30 | Outpatient (BNVA) | payer OTHER, SELFPAY | PROVIDERS: PCP Internal Medicine; Visit Provider Surgery ==

== ENCOUNTER 2024-05-19 15:16 | Outpatient (REF) | payer OTHER, SELFPAY ==
--- NOTE | ~2024-05-19 | MM_ITS ---
EXAMINATION: MM SCREENING DIGITAL BREAST TOMOSYNTHESIS, BILATERAL CLINICAL INFORMATION: Screening. Asymptomatic. COMPARISON: Mammography: Comparison is made with available priors TECHNIQUE: Digital breast mammography with tomosynthesis is performed in both the craniocaudal and mediolateral oblique views along with computer-aided detection (CAD). FINDINGS: There are scattered areas of fibroglandular density (ACR BI-RADS breast composition Category b). Left excisional biopsy for atypical ductal hyperplasia in 2021. There are no significant masses, abnormal calcifications, or other abnormalities. MM/MM tomosynthesis screening BI IMPRESSION: No mammographic evidence of malignancy. ASSESSMENT: BI-RADS BI-RADS 2 - Benign Findings RECOMMENDATION: Routine annual mammography screening. 1 year F/U This examination should not preclude the clinical evaluation of a suspicious palpable abnormality. This patient's information was entered into a reminder system with a target due date for their next mammogram. Electronically signed by: Florinda Blair DO 06/02/2024 10:31 AM EDT
== END 2024-05-19 15:17 | disposition home or self-care (01) ==
LOC: HO.MAMMO 15:16
PROVIDERS: PCP Internal Medicine; Visit Provider Internal Medicine
DX: Z12.31 Encounter for screening mammogram for malignant neoplasm of breast (principal)
CPT/HCPCS: 77063; 77067

== ENCOUNTER → 2024-05-19 15:30 | Outpatient (BNV) | payer OTHER, SELFPAY | PROVIDERS: PCP Internal Medicine; Visit Provider Internal Medicine | DX: Z12.31 Encounter for screening mammogram for malignant neoplasm of breast (principal) | CPT/HCPCS: 77063; 77067 ==

== ENCOUNTER 2024-07-03 13:19 | Outpatient (AMB) | payer OTHER, SELFPAY ==
[2024-07-03 13:40] VITALS: BP 118/70; PULSE 72; O2SAT 99; BMI 28.0
--- NOTE | 2024-07-03 13:40 | A.OFFPC_ITS ---
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 [facility] Medical History Diverticulosis Anemia Annual physical exam Dysmenorrhea Surgical History (Updated 07/03/24 @ 14:32 by Kylie Murray MD) Hx of colonoscopy History of lumpectomy of left breast (06/13/22) Family History Father Throat cancer Mother No problems noted. 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 1. Little interest or pleasure in doing things: not at all 2. Feeling down, depressed, or hopeless: not at all 3. Trouble falling or staying asleep, or sleeping too much: not at all 4. Feeling tired or having little energy: not at all 5. Poor appetite or overeating: not at all 6. Feeling bad about yourself - or that you are a failure or have let yourself or your family down: not at all 7. Trouble concentrating on things, such as reading the newspaper or watching television: not at all 8. Moving or speaking so slowly that other people could have noticed. Or the opposite - being so fidgety or restless that you have been moving around a lot more than usual: not at all 9. Thoughts that you would be better off or of hurting yourself in some way: not at all Total score: 0 Depression Screening Interpretation: Negative Depression Screening Done: Yes 67222 - PHQ-9 Billing: Yes Source: Developed by Drs. Chaparro Thomas, Radha Mcgrath, Nemesio Valdes and colleagues, with an educational glynn from [employer]. Thrive Questionnaire Date Thrive assessed: 07/01/24 I am a: Patient What is your living situation today?: I choose not to answer this question Within the past 12 months, did the food you bought not last and you didn't have the money to get more?: I choose not to answer this question Within the past 12 months, did you worry whether your food would run out before you got money to buy more?: I choose not to answer this question Do you have trouble paying for medicines?: Yes Do you have trouble getting transportation to medical appointments?: I choose not to answer this question Do you have trouble paying your heating and electricity bill?: I choose not to answer this question Do you have trouble taking care of your child, family member or friend?: I choose not to answer this question Do you have trouble with day-to-day activities such as bathing, preparing meals, shopping, managing finances, etc.?: I choose not to answer this question Are you currently unemployed and looking for a job?: I choose not to answer this question Are you interested in more education?: I choose not to answer this question Please select the resources that you would like help with: None Currently or been in a relationship where the following occur: I choose not to answer THRIVE Score: 0 AUDIT C Alcohol Use Questionnaire (AUDIT-C) 1. How often do you have a drink containing alcohol?: Never 2. How many drinks containing alcohol do you have on a typical day when you are drinking?: 1 or 2 3. How often do you have six or more drinks on one occasion?: Never Total Score: 0 Score Reviewed/Action Taken: Yes CARLITO-7 AMB Questionnaire CARLITO-7 Date CARLITO - 7 assessed: 07/03/24 Feeling nervous, anxious, or on edge: 0 = Not at all Not being able to stop or control worryin = Not at all Worrying too much about different things: 0 = Not at all Trouble relaxin = Not at all Being so restless that it is hard to sit still: 0 = Not at all Becoming easily annoyed or irritable: 0 = Not at all Feeling afraid as if something awful might happen: 0 = Not at all Total CARLITO-7 score (0-4 normal; 5-9 mild; 10-14 moderate; 15-21 severe): 0 Source: Developed by Drs. Chaparro Thomas, Radha Mcgrath, Nemesio Valdes and colleagues, with an educational glynn from [employer]. CARLITO-7 Assessment Billing CARLITO-7 Assessment Tool: CARLITO-7 Assessment 30611 Review of Systems Const All systems reviewed & are unremarkable except as noted in HPI and below Eyes Reports no additional complaints ENT Reports no additional complaints Card Reports no additional complaints Resp Reports no additional complaints GI Reports no additional complaints Reports no additional complaints Physical exam (Primary Care) Vital Signs: Last Vital Signs Pulse 72 07/03/24 13:40 BP 118/70 07/03/24 13:40 Pulse Ox 99 07/03/24 13:40 BMI result Body Mass Index 28.0 Tobacco/Smoking Status: Tobacco use Status Tobacco use date assessed 07/03/24 07/03/24 13:46 Patient Tobacco Use Status Former Tobacco user 07/03/24 13:41 e-Cigarette/Vaping Use Never Used 07/03/24 13:41 PHQ-9: PHQ-9 Score PHQ-9: Total score 0 07/03/24 13:46 Depression Screening Interpretation: Negative Thrive Assessment: Date of Thrive Assessment Date Thrive assessed 07/01/24 07/03/24 13:41 Currently or been in a relationship where the following occur: I choose not to answer Const General: no acute distress HENMT Head: Yes normal to inspection General nose exam: Normal external nose present Eyes General: appearance normal, both eyes and all related structures Neck Neck: Yes no lymphadenopathy and Yes supple Resp Effort & Inspection: normal respiratory effort Auscultation: clear to auscultation bilaterally Cardio Rhythm: regular rhythm Heart sounds: S1 normal heart sound present and S2 normal heart sound present GI Inspection: Yes normal to inspection Palpation (GI): Soft to palpation Percussion: Yes normal to percussion Auscultation: normal bowel sounds Coding Level of Care Code Est Pt Prev Care 40-64y(79028) Diagnoses Hx of colonoscopy Z98.890 Atypical ductal hyperplasia of left breast N60.92 Normal pelvic exam Z01.419 Annual physical exam Z00.00 Additional Codes CARLITO-7 Assessment Billing - CARLITO-7 Assessment Tool: CARLITO-7 Assessment 42154 ([id number]) Assessment & Plan Assessment & Plan (1) Hx of colonoscopy: Comment: 02/2024 negative, repeat 10 yrs Code(s): Z98.890 - Other specified postprocedural states Category: Surgical Plan: fu with GI (2) Atypical ductal hyperplasia of left breast: Comment: Status post lumpectomy 06/23, on Tamoxifen f/u [facility] oncology Code(s): N60.92 - Unspecified benign mammary dysplasia of left breast Category: Medical Plan: FOLLOW-UP WITH ONCOLOGY ON TAMOXIFEN (3) Normal pelvic exam: Comment: quality engineer medical device 2021, endometrial hyperplasia on Mirena Code(s): Z01.419 - Encounter for gynecological examination (general) (routine) without abnormal findings Category: Medical Plan: Follow-up with quality engineer medical device (4) Annual physical exam: Code(s): Z00.00 - Encounter for general adult medical examination without abnormal findings Category: Medical Plan: Well-balanced diet regular physical activity discussed with the patient's Medications: Discontinued bismuth subsalicylate (Bismuth) Discontinued Reason: Doctor's Order 2 tabs PO QID 14 days 112 tabs 0RF metronidazole Discontinued Reason: Doctor's Order 250 mg PO QID 14 days 56 tabs 0RF tetracycline Discontinued Reason: Duplicate 500 mg PO Q6H 14 days 56 caps 0RF
== END 2024-07-03 14:34 | disposition home or self-care (01) ==
LOC: HO.HMCC 13:20
PROVIDERS: PCP Internal Medicine; Visit Provider Internal Medicine
DX: Z98.890 Other specified postprocedural states (principal); N60.92 Unspecified benign mammary dysplasia of left breast; Z01.419 Encounter for gynecological examination (general) (routine) without abnormal findings; Z00.00 Encounter for general adult medical examination without abnormal findings

== ENCOUNTER → 2024-07-03 13:19 | Outpatient (BNVA) | payer OTHER, SELFPAY | PROVIDERS: PCP Internal Medicine; Visit Provider Internal Medicine | DX: Z00.00 Encounter for general adult medical examination without abnormal findings (principal); N60.92 Unspecified benign mammary dysplasia of left breast; Z79.810 Long term (current) use of selective estrogen receptor modulators (SERMs) | CPT/HCPCS: 96127 ==

== ENCOUNTER 2024-12-01 14:46 | Outpatient (AMB) | payer OTHER, SELFPAY ==
--- NOTE | 2024-12-01 14:48 | MHC.OFFVIS ---
Vital Signs 12/01/24 14:51 Height 5 ft 2 in Weight 154 lb 5.177 oz BMI 28.2 BP 99/53 L Blood Pressure Location Lt brachial Position Sitting Pulse 90 Pulse Source Pulse Oximeter Pulse Oximetry (%) 98 Oxygen Delivery Method Room Air Intake Visit Reasons: 6 month follow up breast exam Intake Note: Patient is seen in office for 6 month follow up visit, breast exam. Patient c/o: None mm:05/19/24 Allergies No Known Allergies Allergy (Verified 12/01/24 14:53) Medication List - Last Reconciled 12/01/24 by Frankie Giron MD levonorgestrel (Mirena) 20 mcg intrauterine DAILY omeprazole 20 mg PO BID 14 days tamoxifen 20 mg PO CONT. PER PROTOCOL tamoxifen 20 mg PO DAILY HPI Comments Details: 49-year-old female patient presenting with a screening mammogram of 04/30/2022 with additional views obtained 05/09/2022 which revealed a cluster of calcifications grouped in the 12:30 location of the left breast. This was new from her baseline mammogram the previous year and felt to be suspicious for malignancy. She denied a previous history of breast problems or breast surgery. Her family history is negative for breast cancer. She is and breastfed her children. She denies difficulties with breast-feeding or breast infections. She underwent a stereotactic guided core biopsy on 05/17/2022. Pathology revealed: Breast tissue with markedly atypical epithelium and associated microcalcifications, background fibrocystic changes. Atypical focus is quite small but resents at least atypical ductal hyperplasia. Cannot rule out ductal carcinoma in-situ. No invasive carcinoma is seen in the current sample. She underwent lumpectomy with needle localization on 06/13/2022. Pathology revealed a small focus of atypical ductal hyperplasia with negative margins; background biopsy site and fibrocystic changes. Negative for in-situ or invasive carcinoma. She was subsequently evaluated by Medical Oncology and started on tamoxifen. She is tolerating this well. She does complain of left shoulder pain. Her most recent mammogram of 05/19/2024 revealed no mammographic evidence of malignancy (BI-RADS 2). She feels well and denies any ongoing breast symptoms. [facility] Medical History Diverticulosis Anemia Annual physical exam Dysmenorrhea Surgical History Hx of colonoscopy History of lumpectomy of left breast (06/13/22) Family History Father Throat cancer Mother No problems noted. 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 Current occupational exposures/hazards: No Cognitive needs: No Hearing needs: No Vision needs: Yes Female Reproductive History Menstrual Age of Menarche: 16 Review of Systems Const All systems reviewed & are unremarkable except as noted in HPI and below Physical Exam Vital Signs: Last Vital Signs Pulse 90 12/01/24 14:51 BP 99/53 L 12/01/24 14:51 Pulse Ox 98 12/01/24 14:51 Oxygen Delivery Method Room Air 12/01/24 14:51 BMI result Body Mass Index 28.2 Const General: no acute distress Nutritional Appearance: well nourished Orientation/consciousness: patient oriented x3 Chest Other: Left breast: No skin change, no nipple retraction, no nipple discharge, no palpable mass, no enlarged lymph nodes, well-healed periareolar incision in the upper outer quadrant with some volume loss. Right breast: No skin change, no nipple retraction, no nipple discharge, no palpable mass, no enlarged lymph nodes Chest/axillae images: 1. Incision upper outer quadrant periareolar Resp Effort & Inspection: normal respiratory effort Skin Other: Warm, dry, no rash Neuro General: patient oriented x3 Extrem Other: No peripheral edema Assessment & Plan Assessment & Plan (1) Atypical ductal hyperplasia of left breast: Comment: Status post lumpectomy 06/23, on Tamoxifen f/u [facility] oncology Code(s): N60.92 - Unspecified benign mammary dysplasia of left breast Category: Medical Plan 49-year-old female patient determined to have atypical ductal hyperplasia, returning for high risk breast examination. Examination today revealed no suspicious findings in either breast. Her most recent mammogram of 05/19/2024 revealed no mammographic evidence of malignancy (BI-RADS 2). I recommended breast MRI to further evaluate the breast given her prior history of atypical ductal hyperplasia. She expressed understanding and agrees with the plan. I recommended follow-up examination in 6 months. Orders: Orders MR breast BI wo/w con Today N60.92 - Unspecified benign mammary dysplasia of left breast Coding Level of Care Code Est Pt Level 3 (38226) Diagnoses Atypical ductal hyperplasia of left breast N60.92
[2024-12-01 14:51] VITALS: BP 99/53; PULSE 90; O2SAT 98; BMI 28.2
--- OUTSIDE RECORDS SUMMARY | 2024-12-01 17:37 | XMS_ITS ---
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 Name Role Phone Trevor PACHECO, Kylie Primary Care Provider Kristin Alves Unavailable [phone] REASON FOR VISIT AFTER US WITH DR Rodas Encounters Encounter Location Date Provider Diagnosis [facility] [address] [place] [address] 04/03/2024 Kristin Aviles Plan Of Treatment Next Appt Details Provider Name:Kristin sanchez, 03/22/2025 08:40:00 AM, [address], [address], [place], [address], Progress Notes * LENO MCDONNELLB:1975 (49 yo F)Acc No.[id number]:04/03/2024 PROGRESS NOTES Patient:?BRANDT MCDONNELL Appointment Provider:?Kristin sanchez M.D. :1975???Age:48 Y???Sex:Female D ate:04/03/2024 Address:[address] [place], [place] [id number] Pcp:Kylie Murray MD Subjective: * Chief Complaints: * ???1. AFTER US WITH DR Rodas. * Medical History:? Objective: * Vitals:? Assessment: Plan: * Treatment: * Images: Billing Information: * Visit Code:? * Procedure Codes:? * Electronic signature of Suzi Aviles MD on 12/01/2024 at 05:37 PM EDT Sign off status: Pending * Appointment Provider:?Kristin Aviles M.D. Date:?04/03/2024 Generated for Magalys escalera/Rad/Gema on:?12/01/2024 05:37 PM EDT
--- OUTSIDE RECORDS SUMMARY | 2024-12-01 17:38 | XMS_ITS | Patient Health Record ---
Author Organization [employer] Address [address] [facility] [address] [place] [address] Care Team Providers Care School Services Officer Name Role Phone Kylie Murray MD Primary Care Provider Unavaila Kristin Espinoza Unavailable [phone] Allergies No Known Allergies Results Component Value Reference Range Notes Urinalysis Reviewed date:03/17/2024 11:31:15 AM Interpretation: Performing Lab: Notes/Report: PH 8.0 PROTEIN Neg GLUCOSE Neg BLOOD Trace Reason For Referral No Information Medications Medication SIG (Take, Route, Frequency, Duration) Notes Start Date End Date Status Mirena (52 MG) 20 MCG/DAY as directed Intrauterine Inserted 08/15/22 Active Tamoxifen Citrate 20 MG TAKE 1 TABLET BY MOUTH DAILY Oral for 90 Active Social History Tobacco Use: Social History Observation Description Date Details (start date - stop date) Former Smoker NA - NA Tobacco Use/Smoking Question Answer Notes Are you a former smoker How long has it been since you last smoked? > 10 years Alcohol Screen (Audit-C) Question Answer Notes Did you have a drink containing alcohol in the p ast year? No Points 0 Interpretation Negative Sexual History Question Answer Notes Had sex in the past 12 months (vaginal, oral, or anal)? Yes with Men only Problems Problem Type SNOMED Code ICD Code Onset Dates Problem Status W/U Status Risk Notes Problem Excessive and frequent menstruation (351450060) Excessive and frequent menstruation with regular cycle (N92.0) Active confirmed Problem Anemia due to chronic blood loss (disorder) (471154453) Iron deficiency anemia secondary to blood loss (chronic) (D50.0) Active confirmed Problem Diverticular disease of colon (631401802) Diverticulosis of large intestine without perforation or abscess without bleeding (K57.30) Active confirmed Problem Endometriosis of uterus (87457925) Endometriosis of uterus (N80.0) Active confirmed Problem Abnormal vaginal bleeding (454848376) Other specified abnormal uterine and vaginal bleeding (N93.8) Active confirmed Problem Dysmenorrhea (325165963) Dysmenorrhea, unspecified (N94.6) Active confirmed Problem Imaging result abnormal (036014018) Abnormal findings on diagnostic imaging of other specified body structures (R93.89) Active confirmed Vital Signs Temperature 97.9 degrees Fahrenheit 03/17/2024 Blood pressure diastolic 70 mm Hg 03/17/2024 Height 63.5 in 03/18/2024 Blood pressure systolic 128 mm Hg 03/17/2024 Weight 149 lbs 03/18/2024 BMI 25.98 kg/m2 03/18/2024 Encounters Encounter Location Date Provider Diagnosis [address] [address] 03/18/2024 Kristin Aviles [address] [address] 03/17/2024 Kristin Aviles Encounter for gynecological examination (general) (routine) without abnormal findings Z01.419 ; Encounter for screening mammogram for malignant neoplasm of breast Z12.31 and Unspecified abdominal pain R10.[address] [address] 03/18/2024 Kristin Aviles Pelvic Pain R10.2 ; Diverticulosis of large intestine without perforation or abscess without bleeding K57.30 and Encounter for routine checking of intrauterine contraceptive device Z30.[address] [address] 03/21/2024 Kristin Aviles Assessments Encounter Date Diagnosis (ICD Code) Assessment Notes Treatment Notes Treatment Clinical Notes Section Notes 03/17/2024 Encounter for gynecological examination (general) (routine) without abnormal findings (ICD-10 - Z01.419) NO PAP TEST, DUE IN 2025. 03/18/2024 Diverticulosis of large intestine without perforation or abscess without bleeding (ICD-10 - K57.30) DISCUSSED DIVERTICULOSIS NOTED ON COLONOSCOPY AND HOW THIS CAN CAUSE PAINS. RECOMMENDED SHE FOLLOW UP WITH HER PCP OR HER GI. 03/18/2024 Pelvic Pain (ICD-10 - R10.2) DISCUSSED RESULTS OF PELVIC ULTRASOUND AND NORMAL FINDINGS. REASSURED PAT THAT PAT'S PAINS ARE NOT HEALTH INSURANCE SALES AGENT IN ORIGIN. 03/18/2024 Encounter for routine checking of intrauterine contraceptive device (ICD-10 - Z30.431) REASSURED PAT THAT IUD IS IN PLACE. THICKENED LINING IS NOT ABNORMAL. SHE IS IN THE LUTEAL PHASE AND IS PROBABLY GOING TO MENSTRUATE SOON. SHE HAS VAGINAL SPOTTING EVERY FEW MONTHS. 03/17/2024 Encounter for screening mammogram for malignant neoplasm of breast (ICD-10 - Z12.31) REGULAR MAMMOGRAMS AND SBE'S WERE RECOMMENDED. 03/17/2024 Unspecified abdominal pain (ICD-10 - R10.9) DISCUSSED NORMAL FINDINGS. RECOMMENDED PELVIC AND ABDOMINAL ULTRASOUND STUDIES. WILL SEE HER AFTER THE SCANS TO DISCUSS RESULTS. Plan Of Treatment Pending Test Test Name Order Date Ultrasound : Abdomen 03/17/2024 Hemoglobin 04/24/2022 COMPLETE BLOOD COUNT 05/09/2022 MM Digital Mammo Screening 03/08/2023 MM Digital Mammo Screening 03/17/2024 MM Digital Mammo Screening 01/26/2022 PELVIC ULTRASOUND W/TRANSVAGINAL 024 Next Appt Details Provider Name:Kristin Witt milagroolgacatalino, 03/22/2025 08:40:00 AM, [address], [address], [place], [address], Insurance Providers Payer Name Payer Address Payer Phone Subscriber Number Group Number Insured Name Patient Relationship to Insured Coverage Start Date Coverage End Date [facility] [address] [place] [address] [id number] BRANDT MCDONNELL Self - patient is the insured Medical (General) History Medical History History ICD Code Dysmenorrhea, unspecified N94.6 Abnormal findings on diagnostic imaging of other specified body structures R93.89 Other specified abnormal uterine and vag inal bleeding N93.8 Excessive and frequent menstruation with regular cycle N92.0 Iron deficiency anemia secondary to bloo d loss (chronic) D50.0 Endometriosis of uterus N80.0 Surgical History Surgery Date(Month/Year) Endometrial Biopsy 01/26/22 Hospitalization History Reason Date(Month/Year) 3 Vaginal Deliveries
--- OUTSIDE RECORDS SUMMARY | 2024-12-01 17:38 | XMS_ITS ---
Author Organization Total [employer] [facility] Address [address] [facility] [address] [place] [address] Care Team Providers Care It Help Desk Technician Name Role Phone Kylie Murray MD Primary Care Provider Kristin Alves [phone] REASON FOR VISIT Cancel 04/03/24 appt Encounters Encounter Location Date Provider Diagnosis [facility] [employer] [address] [facility] [address] [place] [address] 03/21/2024 Kristin Aviles Plan Of Treatment Next Appt Details Provider Name:Kristin sanchez, 03/22/2025 08:40:00 AM, [address] [facility], [address], [place], [address], Progress Notes * LENO MCDONNELLB:1975 (48 yo F)Acc No.[id number]:03/21/2024 Patient:?BRANDT MCDONNELL :1975???Age:48 Y???Sex:Female Address:[address] [place] [address], [address] * true * Date:? Generated for Printi ng/Fahermelindog/eTransmitting on:?12/01/2024 05:37 PM EDT
--- OUTSIDE RECORDS SUMMARY | 2024-12-01 17:38 | XMS_ITS ---
Author Organization Total [employer] [facility] Address [address] [facility] [address] [place] [address] Care Team Providers Care Support Services Rep Name Role Phone Trevor PACHECO, Kylie Primary Care Provider Kristin Alves [phone] REASON FOR VISIT ABDOMINAL US AND PELVIC US Encounters Encounter Location Date Provider Diagnosis [facility] [facility] [address] [facility] [address] [place] [address] 04/03/2024 Kristin Aviles Plan Of Treatment Next Appt Details Provider Name:Kristin sanchez, 03/22/2025 08:40:00 AM, [address] [facility], [address], [place], [address], Progress Notes * RANDALL MCDONNELLADOB:1975 (49 yo F)Acc No.[id number]:04/03/2024 PROGRESS NOTES Patient:?BRANDT MCDONNELL Appointment Provider:?Kristin sanchez M.D. :1975???Age:48 Y???Sex:Female D ate:04/03/2024 Address:[address] [place], [place] [id number] Pcp:Kylie Murray MD Subjective: * Chief Complaints: * ???1. ABDOMINAL US AND PELVI C US. * Medical History:? Objective: * Vitals:? Assessment: Plan: * Treatment: * Images: Billing Information: * Visit Code:? * Procedure Codes:? * Electronic signature of Suzi Aviles MD on 12/01/2024 at 05:38 PM EDT Sign off status: Pending * Appointment Provider:?Kristin Aviles M.D. Date:?04/03/2024 Generated for Magalys escalera/Rad/Gema on:?12/01/2024 05:38 PM EDT
== END 2024-12-01 15:03 | disposition home or self-care (01) ==
PROVIDERS: PCP Internal Medicine; Visit Provider Surgery
DX: N60.92 Unspecified benign mammary dysplasia of left breast (principal)
CPT/HCPCS: 99213

== ENCOUNTER → 2024-12-14 15:53 | Outpatient (BNV) | payer OTHER, SELFPAY | PROVIDERS: PCP Internal Medicine; Visit Provider Internal Medicine | DX: N60.82 Other benign mammary dysplasias of left breast (principal) | CPT/HCPCS: 77049 ==

== ENCOUNTER 2024-12-14 15:56 | Outpatient (REF) | payer OTHER, SELFPAY ==
[2024-12-14] MEDS: gadobutroL 7.5 ML VIAL IVPUSH (16:50)
--- OUTSIDE RECORDS SUMMARY | 2024-12-14 18:15 | XMS_ITS ---
Author Organization Total [facility] Address [address] [facility] [address] [place] [address] Care Team Providers Care Senior Data Integration Developer Name Role Phone Trevor PACHECO, Kylie Primary Care Provider Kristin Alves Unavailable [phone] REASON FOR VISIT AFTER US WITH DR Rodas Encounters Encounter Location Date Provider Diagnosis [facility] [address] [facility] [address] [place] [address] 04/03/2024 Kristin Aviles Plan Of Treatment Next Appt Details Provider Name:Kristin sanchez, 03/22/2025 08:40:00 AM, [address] [facility], [address], [place], [address], Progress Notes * LENO MCDONNELLB:1975 (49 yo F)Acc No.[id number]:04/03/2024 PROGRESS NOTES Patient:?BRANDT MCDONNELL Appointment Provider:?Kristin sanchez M.D. :1975???Age:48 Y???Sex:Female D ate:04/03/2024 Address:[address] [place], [place] [id number] Pcp:Kylie Murray MD Subjective: * Chief Complaints: * ???1. AFTER US WITH DR Rodas. * Medical History:? Objective: * Vitals:? Assessment: Plan: * Treatment: * Images: Billing Information: * Visit Code:? * Procedure Codes:? * Electronic signature of Suzi Aviles MD on 12/14/2024 at 06:15 PM EDT Sign off status: Pending * Appointment Provider:?Kristin Aviles M.D. Date:?04/03/2024 Generated for Magalys escalera/Rad/Gema on:?12/14/2024 06:15 PM EDT
--- OUTSIDE RECORDS SUMMARY | 2024-12-14 18:15 | XMS_ITS ---
Author Organization [facility] [employer] [facility] Address [address] [facility] [address] [place] [address] Care Team Providers Care Recreation Attendant Supervisor Name Role Phone Kylie Murray MD Primary Care Provider Kristin Alves [phone] REASON FOR VISIT Cancel 04/03/24 appt Encounters Encounter Location Date Provider Diagnosis [facility] [employer] [facility] [address] [facility] [address] [place] [address] 03/21/2024 Kristin Aviles Plan Of Treatment Next Appt Details Provider Name:Kristin sanchez, 03/22/2025 08:40:00 AM, [address] [facility], [address], [place], [address], Progress Notes * LENO MCDONNELLB:1975 (48 yo F)Acc No.[id number]:03/21/2024 Patient:?BRANDT MCDONNELL :1975???Age:48 Y???Sex:Female Address:[address] [place] [address], [address] * true * Date:? Generated for Printi ng/Fahermelindog/eTransmitting on:?12/14/2024 06:15 PM EDT
--- OUTSIDE RECORDS SUMMARY | 2024-12-14 18:15 | XMS_ITS ---
Author Organization Total [facility] Address [address] [place] [address] Care Team Providers Care Senior Controller Name Role Phone Trevor PACHECO, Kylie Primary Care Provider Kristin Alves [phone] REASON FOR VISIT ABDOMINAL US AND PELVIC US Encounters Encounter Location Date Provider Diagnosis [facility] [address] [facility] [address] [place] [address] 04/03/2024 Kristin Aviles Plan Of Treatment Next Appt Details Provider Name:Kristin sanchez, 03/22/2025 08:40:00 AM, [address] [facility] [address], [address], [place], [address], Progress Notes * RANDALL MCDONNELLADOB:1975 (49 yo F)Acc No.[id number]:04/03/2024 PROGRESS NOTES Patient:?BRANDT MCDONNELL Appointment Provider:?Kristin sanchez M.D. :1975???Age:48 Y???Sex:Female D ate:04/03/2024 Address:[address] [place], [place] [address] Pcp:Kylie Murray MD Subjective: * Chief Complaints: [...]
--- OUTSIDE RECORDS SUMMARY | 2024-12-14 18:15 | XMS_ITS | Patient Health Record ---
Author Organization [facility] Address [address] [facility] [address] [place] [address] Care Team Providers Care Haircutter Name Role Phone Kylie Murray MD Primary Care Provider Unavaila Kristin Espinoza Unavailable [phone] Allergies No Known Allergies Results Component Value [...] Risk Notes Problem Excessive and frequent menstruation (200038020) Excessive and frequent menstruation with regular cycle (N92.0) Active confirmed Problem Anemia due to chronic blood loss (disorder) (093462677) Iron deficiency anemia secondary to blood loss (chronic) (D50.0) Active confirmed Problem Diverticular disease of colon (247686025) Diverticulosis of large intestine without perforation or abscess without bleeding (K57.30) Active confirmed Problem Endometriosis of uterus (16594521) Endometriosis of uterus (N80.0) Active confirmed Problem Abnormal vaginal bleeding (798813950) Other specified abnormal uterine and vaginal bleeding (N93.8) Active confirmed Problem Dysmenorrhea (265136946) Dysmenorrhea, unspecified (N94.6) Active confirmed Problem Imaging result abnormal (132291292) Abnormal findings on diagnostic imaging of other specified body structures (R93.89) Active confirmed Vital Signs Temperature 97.9 degrees Fahrenheit 03/17/2024 Blood pressure diastolic 70 mm Hg 03/17/2024 Height 63.5 in 03/18/2024 Blood pressure systolic 128 mm Hg 03/17/2024 Weight 149 lbs 03/18/2024 BMI 25.98 kg/m2 03/18/2024 Encounters Encounter Location Date Provider Diagnosis [address] [address] 03/18/2024 Kristin Aviles [address] [address] 03/17/2024 Kristin Aviles Encounter for gynecological examination (general) (routine) without abnormal findings Z01.419 ; Encounter for screening mammogram for malignant neoplasm of breast Z12.31 and Unspecified abdominal pain R10.[address] [address] 03/18/2024 Kristin Aviles Pelvic Pain R10.2 ; Diverticulosis of large intestine without perforation or abscess without bleeding K57.30 and Encounter for routine checking of intrauterine contraceptive device Z30.[address] [address] 03/21/2024 Kristin Aviles Assessments Encounter Date Diagnosis [...] REASSURED PAT THAT PAT'S PAINS ARE NOT PRINT LINE TAILER IN ORIGIN. 03/18/2024 Encounter for routine checking [...] Name:Kristin Witt milagroolgacatalino, 03/22/2025 08:40:00 AM, [address], [address], [place], [address], Insurance Providers Payer Name Payer Address Payer Phone Subscriber Number Group Number Insured Name Patient Relationship to Insured Coverage Start Date Coverage End Date [facility] [address] [place] [id number] BRANDT MCDONNELL Self - patient is the [...]
== END 2024-12-14 15:57 | disposition home or self-care (01) ==
LOC: HO.MRI 15:56
PROVIDERS: PCP Internal Medicine; Visit Provider Surgery
DX: N60.92 Unspecified benign mammary dysplasia of left breast (principal)
CPT/HCPCS: 77049; A9585

== ENCOUNTER 2024-12-23 14:23 | Outpatient (REF) | payer OTHER, SELFPAY ==
--- NOTE | ~2024-12-23 | MM_ITS ---
EXAMINATION: DXA BONE DENSITY AXIAL HISTORY: Osteopenia TECHNIQUE: [employer] Dual energy absorptiometry (DEXA) of the lumbar spine, total left hip, and femoral neck was performed. COMPARISON: Comparison is made with the prior examination dated 07/04/2022. FINDINGS: The bone mineral density of the lumbar spine is 1.226 with a T-score of 0.2, and a Z-score of 0.3. This is indicative of normal bone mineral density. This represents a BMD change of -6.0% compared to the prior exam. This is statistically significant. The bone mineral density of the left total hip is 1.057 with a T-score of 0.4, and a Z-score of 0.6. This is indicative of normal bone mineral density. This represents a BMD change of -6.2% compared to the prior exam. This is statistically significant. The bone mineral density of the left femoral neck is 1.076 with a T-score of 0.3, and a Z-score of 0.8. This is indicative of normal bone mineral density. This represents a BMD change of -3.9% compared to the prior exam. MM/XR DEXA axial skeleton IMPRESSION: Based on bone mineral density, and according to World Health Organization (WHO) criteria, the diagnosis is consistent with normal bone mineral density. All bone density values are in grams per centimeter squared (g/cm2). Statistically, 68% of repeat scans fall within 1 SD (+/- 0.010 g/cm2 for AP spine L1-L4) and 1 SD (+/- 0.012 g/cm2 for femur total) FRAX is a trademark of the [employer]'s [employer] Met[employer], a World Health Organization (WHO) Collaborating Center. Electronically signed by: Chaparro Ivy MD 12/25/2024 07:42 AM EDT
--- OUTSIDE RECORDS SUMMARY | 2024-12-23 17:17 | XMS_ITS ---
Author Organization [facility] Address [address] [facility] [address] [place] [address] Care Team Providers Care Food Service Coordinator Name Role Phone Kylie Murray MD Primary Care Provider Kristin Alves [phone] REASON FOR VISIT Cancel 04/03/24 appt Encounters Encounter Location Date Provider Diagnosis [facility] [address] [facility] [address] [place] [address] 03/21/2024 Kristin Aviles Plan Of Treatment Next Appt Details Provider Name:Kristin sanchez, 03/22/2025 08:40:00 AM, [address] [facility], [address], [place], [address], Progress Notes * LENO MCDONNELLB:1975 (48 yo F)Acc No.[id number]:03/21/2024 Patient:?BRANDT MCDONNELL :1975???Age:48 Y???Sex:Female Address:[address] [place] [address], [address] * true * Date:? Generated for Printi ng/Fahermelindog/eTransmitting on:?12/23/2024 05:17 PM EDT
--- OUTSIDE RECORDS SUMMARY | 2024-12-23 17:17 | XMS_ITS ---
Author Organization [facility] Address [address] [facility] [address] [place] [address] Care Team Providers Care Process Control Manager Name Role Phone Trevor PACHECO, Kylie Primary Care Provider Kristin Alves Unavailable [phone] REASON FOR VISIT AFTER US WITH DR Rodas Encounters Encounter Location Date Provider Diagnosis [facility] [address] [facility] [address] [place] [address] 04/03/2024 Kristin Aviles Plan Of Treatment Next Appt Details Provider Name:Kristin sanchez, 03/22/2025 08:40:00 AM, [address] [facility], [address], [place], [address], Progress Notes * LENO MCDONNELLB:1975 (49 yo F)Acc No.[id number]:04/03/2024 PROGRESS NOTES Patient:?BRANDT MCDONNELL Appointment Provider:?Kristin sanchez M.D. :1975???Age:48 Y???Sex:Female D ate:04/03/2024 Address:[address] [place], [place] [address] Pcp:Kylie Murray MD Subjective: * Chief Complaints: * ???1. AFTER US WITH DR Rodas. * Medical History:? Objective: * Vitals:? Assessment: Plan: * Treatment: * Images: Billing Information: * Visit Code:? * Procedure Codes:? * Electronic signature of Suzi Aviles MD on 12/23/2024 at 05:17 PM EDT Sign off status: Pending * Appointment Provider:?Kristin Aviles M.D. Date:?04/03/2024 Generated for Magalys escalera/Rad/Gema on:?12/23/2024 05:17 PM EDT
--- OUTSIDE RECORDS SUMMARY | 2024-12-23 17:17 | XMS_ITS | Patient Health Record ---
Author Organization [facility] Address [address] [facility] [address] [place] [address] Care Team Providers Care Spudder Name Role Phone Kylie Murray MD Primary Care Provider Unavaila Kristin Espinoza Unavailable [phone] Allergies No Known Allergies Results Component Value [...] Risk Notes Problem Excessive and frequent menstruation (924027810) Excessive and frequent menstruation with regular cycle (N92.0) Active confirmed Problem Anemia due to chronic blood loss (disorder) (612593106) Iron deficiency anemia secondary to blood loss (chronic) (D50.0) Active confirmed Problem Diverticular disease of colon (469504789) Diverticulosis of large intestine without perforation or abscess without bleeding (K57.30) Active confirmed Problem Endometriosis of uterus (82044492) Endometriosis of uterus (N80.0) Active confirmed Problem Abnormal vaginal bleeding (692648015) Other specified abnormal uterine and vaginal bleeding (N93.8) Active confirmed Problem Dysmenorrhea (942810127) Dysmenorrhea, unspecified (N94.6) Active confirmed Problem Imaging result abnormal (366753464) Abnormal findings on diagnostic imaging of other specified body structures (R93.89) Active confirmed Vital Signs Temperature 97.9 degrees Fahrenheit 03/17/2024 Blood pressure diastolic 70 mm Hg 03/17/2024 Height 63.5 in 03/18/2024 Blood pressure systolic 128 mm Hg 03/17/2024 Weight 149 lbs 03/18/2024 BMI 25.98 kg/m2 03/18/2024 Encounters Encounter Location Date Provider Diagnosis [address] [address] 03/18/2024 Kristin Aviles [address] [address] 03/17/2024 Kristin Aviles Encounter for gynecological examination (general) (routine) without abnormal findings Z01.419 ; Encounter for screening mammogram for malignant neoplasm of breast Z12.31 and Unspecified abdominal pain R10.[address] [address] 03/18/2024 Kristin Aviles Pelvic Pain R10.2 ; Diverticulosis of large intestine without perforation or abscess without bleeding K57.30 and Encounter for routine checking of intrauterine contraceptive device Z30.[address] [address] 03/21/2024 Kristin Aviles Assessments Encounter Date Diagnosis [...] REASSURED PAT THAT PAT'S PAINS ARE NOT INVESTIGATOR FRAUD IN ORIGIN. 03/18/2024 Encounter for routine checking [...] 08:40:00 AM, [address], [address], [place], [address], Insurance Providers Payer Name Payer Address Payer Phone Subscriber Number Group Number Insured Name Patient Relationship to Insured Coverage Start Date Coverage End Date [facility] [address] [place] [id number] BRANDT MCDONNELL Self - patient is the [...]
--- OUTSIDE RECORDS SUMMARY | 2024-12-23 17:17 | XMS_ITS ---
Author Organization Total [facility] Address [address] [facility] [address] [place] [address] Care Team Providers Care Instructional Coach Name Role Phone Trevor PACHECO, Kylie Primary Care Provider Kristin Alves [phone] REASON FOR VISIT ABDOMINAL US AND PELVIC US Encounters Encounter Location Date Provider Diagnosis [facility] [address] [facility] [address] [place] [address] 04/03/2024 Kristin Aviles Plan Of Treatment Next Appt Details Provider Name:Kristin sanchez, 03/22/2025 08:40:00 AM, [address] [facility], [address], [place], [address], Progress Notes * RANDALL MCDONNELLADOB:1975 (49 yo F)Acc No.[id number]:04/03/2024 PROGRESS NOTES Patient:?BRANDT MCDONNELL Appointment Provider:?Kristin sanchez M.D. :1975???Age:48 Y???Sex:Female D ate:04/03/2024 Address:[address] [place], [place] [address] Pcp:Kylie Murray MD Subjective: * Chief Complaints: [...]
== END 2024-12-23 14:24 | disposition home or self-care (01) ==
LOC: HO.MAMMO 14:23
PROVIDERS: PCP Internal Medicine; Visit Provider Internal Medicine Medical Oncology
DX: Z13.820 Encounter for screening for osteoporosis (principal); M85.80 Other specified disorders of bone density and structure, unspecified site; E28.39 Other primary ovarian failure
CPT/HCPCS: 77080

== ENCOUNTER → 2024-12-23 14:30 | Outpatient (BNV) | payer OTHER, SELFPAY | PROVIDERS: PCP Internal Medicine; Visit Provider Radiology Diagnostic Radiology | DX: E28.39 Other primary ovarian failure (principal) | CPT/HCPCS: 77080 ==

== ENCOUNTER 2025-06-08 14:55 | Outpatient (AMB) | payer OTHER, SELFPAY ==
--- NOTE | 2025-06-08 15:03 | A.OFFVIS_ITS ---
Vital Signs 06/08/25 15:10 Height 5 ft 2 in Weight 159 lb BMI 29.1 BP 127/61 Blood Pressure Location Lt brachial Position Sitting Pulse 80 Intake Visit Reasons: 6 month follow up breast exam Intake Note: Patient is seen in office for 6 month follow up visit, breast exam. Pt c/o: felt a lump on the right breast 2 weeks ago, thinks might be enlarged lymph nodes, has gotten smaller since and less painful MRI:12/14/24 mm sched:06/16/25 @2:45p Financial Aid Manager Required: Yes Financial Aid Manager Services: Financial Aid Manager Offered & Declined Gas Pump Attendant: Gas Pump Attendant Present Accompanied by: Family/Other Allergies No Known Allergies Allergy (Verified 06/08/25 15:09) HPI Comments Details: 49-year-old female patient returning for a high-risk breast cancer examination. She was diagnosed with atypical ductal hyperplasia in the left breast and subsequently underwent a left breast lumpectomy with needle localization on 06/13/2022. Pathology revealed a small focus of atypical ductal hyperplasia with negative margins, negative for in-situ or invasive carcinoma. She was subsequently evaluated by Dr. Olivarez started on tamoxifen which she is tolerating well. Her past history was negative for a previous breast problems or breast surgery. Family history is negative for breast cancer. She is and breastfed her children. Her most recent mammogram of 05/19/2024 revealed no mammographic evidence of malignancy (BI-RADS 2). She is scheduled for an annual mammogram on 06/16/2025. Her most recent MRI of 12/14/2024 revealed postoperative changes in the left breast and no MR specific evidence of malignancy (BI-RADS 2 left breast, BI-RADS 1 right breast). She generally feels well and denies any ongoing breast symptoms. She reports pain in the right axilla with an enlarged lymph node approximately 2 weeks ago. This has subsequently subsided but she still has some mild discomfort in the right axilla. [facility] Medical History Diverticulosis Anemia Annual physical exam Dysmenorrhea Surgical History Hx of colonoscopy History of lumpectomy of left breast (06/13/22) Family History Father Throat cancer Mother No problems noted. 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 Current occupational exposures/hazards: No Cognitive needs: No Hearing needs: No Vision needs: Yes Female Reproductive History Menstrual Age of Menarche: 16 Review of Systems Const All systems reviewed & are unremarkable except as noted in HPI and below Physical Exam Vital Signs: Last Vital Signs Pulse 80 06/08/25 15:10 BP 127/61 06/08/25 15:10 BMI result Body Mass Index 29.1 Const General: no acute distress Nutritional Appearance: well nourished Orientation/consciousness: patient oriented x3 Chest Other: Left breast: No skin change, no nipple retraction, no nipple discharge, no palpable mass, no enlarged lymph nodes, well-healed periareolar incision in the upper outer quadrant with some volume loss. Right breast: No skin change, no nipple retraction, no nipple discharge, no palpable mass, no enlarged lymph nodes Resp Effort & Inspection: normal respiratory effort Skin Other: Warm, dry, no rash Neuro Other: Mobility Assessment: 1. 3 meter assessment time (seconds) 4 2. Gait observations: Normal balance and gait General: patient oriented x3 Extrem Other: No peripheral edema Assessment & Plan Assessment & Plan (1) Atypical ductal hyperplasia of left breast: Comment: Status post lumpectomy 06/23, on Tamoxifen f/u [facility] oncology Code(s): N60.92 - Unspecified benign mammary dysplasia of left breast Category: Medical Plan 49-year-old female patient determined to have atypical ductal hyperplasia, returning for high risk breast examination. Examination today revealed no suspicious findings in either breast. It appears she had right axillary lymphadenitis which is now resolved as no palpable lymph nodes are appreciated to my examination. Her most recent mammogram of 05/19/2024 revealed no mammographic evidence of malignancy (BI-RADS 2). Breast MRI of 12/14/2024 revealed postoperative changes in the left breast but no MR evidence of malignancy (BI-RADS 2 left breast, BI-RADS 1 right breast). She is scheduled for a mammogram on 06/16/2025. She will follow up in 6 months for routine breast examination but is welcome to call sooner for any new concerns. Coding Level of Care Code Est Pt Level 3 (01248) Complex EM visit Add On G2211 Diagnoses Atypical ductal hyperplasia of left breast N60.92
[2025-06-08 15:10] VITALS: BP 127/61; PULSE 80; BMI 29.1
== END 2025-06-08 15:22 | disposition home or self-care (01) ==
PROVIDERS: PCP Internal Medicine; Visit Provider Surgery
DX: N60.92 Unspecified benign mammary dysplasia of left breast (principal)
CPT/HCPCS: 99213

== ENCOUNTER 2025-06-16 14:42 | Outpatient (REF) | payer OTHER, SELFPAY ==
--- OUTSIDE RECORDS SUMMARY | 2024-03-18 09:00 | XMS_ITS ---
Author Organization [facility] Address [address] [place] [address] Care Team Providers Care Pathology Laboratory Aides Teacher Name Role Phone Trevor PACHECO, Kylie Primary Care Provider Kristin Alves Unavailable [phone] REASON FOR VISIT ULTRA- LLQ PAIN; ABD PAIN Encounters Encounter Location Date Provider Diagnosis [facility] [address] [address] 03/18/2024 Kristin Aviles Plan Of Treatment Next Appt Details Provider Name:Kristin sanchez, 08/12/2025 02:20:00 PM, [address] [facility], [facility] [address], [place], [address], Progress Notes * RANDALL MCDONNELLADOB:1975 (49 yo F)Acc No.[id number]:03/18/2024 PROGRESS NOTES Patient: BRANDT CRUZ Appointment Provider: Cl Aviles M.D. :1975 A ge:48 Y S ex:Female Date:03/18/2024 Address:[address] [place], [place] [id number] Pcp:Kylie Murray MD Subjective: * Chief Complaints: * 1 . ULTRA- LLQ PAIN; ABD PAIN. * Medical History: Objective: * Vitals: Assessment: Plan: * Treatment: * Images: Billing Information: * Visit Code: * Procedure Codes: * Electronic signature of Suzi Aviles MD on 06/16/2025 at 06:24 PM EDT Sign off status: Pending * Appointment Provider: Cl Aviles M.D. Date: 0 03/18/2024 Generated for Magalys escalera/Rad/Gema on: 1 06:24 PM EDT
--- OUTSIDE RECORDS SUMMARY | 2024-04-03 10:00 | XMS_ITS ---
Author Organization [facility] Address [address] [place] [address] Care Team Providers Care Central Sterile Technician Name Role Phone Trevor PACHECO, Kylie Primary Care Provider Kristin Alves Unavailable [phone] REASON FOR VISIT AFTER US WITH DR Rodas Encounters Encounter Location Date Provider Diagnosis [facility] [address] [place] [address] 04/03/2024 Kristin Aviles Plan Of Treatment Next Appt Details Provider Name:Kristin sanchez, 08/12/2025 02:20:00 PM, [address] [facility], [address], [place], [address], Progress Notes * RANDALL MCDONNELLADOB:1975 (49 yo F)Acc No.[id number]:04/03/2024 PROGRESS NOTES Patient: BRANDT CRUZ Appointment Provider: Cl Aviles M.D. :1975 A ge:48 Y S ex:Female Date:04/03/2024 Address:[address] [place], [place] [phone] Pcp:Kylie Murray MD Subjective: * Chief Complaints: * 1 . AFTER US WITH DR Rodas. * Medical History: Objective: * Vitals: Assessment: Plan: * Treatment: * Images: Billing Information: * Visit Code: * Procedure Codes: * Electronic signature of Suzi Aviles MD on 06/16/2025 at 06:24 PM EDT Sign off status: Pending * Appointment Provider: Cl Aviles M.D. Date: 0 04/03/2024 Generated for Magalys escalera/Rad/Gema on: 1 06:24 PM EDT
--- OUTSIDE RECORDS SUMMARY | 2024-04-03 10:00 | XMS_ITS ---
Author Organization [facility] Address [address] [place] [address] Care Team Providers Care Scorer Single Name Role Phone Trevor PACHECO, Kylie Primary Care Provider Kristin Alves Unavailable [phone] REASON FOR VISIT ABDOMINAL US AND PELVIC US Encounters Encounter Location Date Provider Diagnosis [facility] [address] [place] [address] 04/03/2024 Kristin Aviles Plan Of Treatment Next Appt Details Provider Name:Kristin sanchez, 08/12/2025 02:20:00 PM, [address], [address], [place], [address], Progress Notes * RANDALL MCDONNELLADOB:1975 (49 yo F)Acc No.[id number]:04/03/2024 PROGRESS NOTES Patient: BRANDT CRUZ Appointment Provider: Cl Aviles M.D. :1975 A ge:48 Y S ex:Female Date:04/03/2024 Address:[address] [place], [place] [id number] Pcp:Kylie Murray MD Subjective: * Chief Complaints: * 1 . ABDOMINAL US AND PELVIC US. * Medical History: Objective: * Vitals: Assessment: Plan: * Treatment: * Images: Billing Information: * Visit Code: * Procedure Codes: * Electronic signature of Suzi Aviles MD on 06/16/2025 at 06:25 PM EDT Sign off status: Pending * Appointment Provider: Cl Aviles M.D. Date: 0 04/03/2024 Generated for Magalys escalera/Rad/Gema on: 1 06:25 PM EDT
--- OUTSIDE RECORDS SUMMARY | 2025-03-22 04:40 | XMS_ITS ---
Author Organization Total [facility] Address [address] [facility] [address] [place] [address] Care Team Providers Care Wax Pattern Coater Name Role Phone Trevor PACHECO, Kylie Primary Care Provider Kristin Alves Unavailable [phone] REASON FOR VISIT Annual COOK HELPER MEAT Physical Encounters Encounter Location Date Provider Diagnosis [facility] [address] [place] [address] 03/22/2025 Kristin Aviles Plan Of Treatment Next Appt Details Provider Name:Kristin sanchez, 08/12/2025 02:20:00 PM, [address] [facility], [address], [place], [address], Progress Notes * RANDALL MCDONNELLADOB:1975 (49 yo F)Acc No.[id number]:03/22/2025 PROGRESS NOTES Patient: BRANDT CRUZ Appointment Provider: Cl Aviles M.D. :1975 A ge:49 Y S ex:Female Date:03/22/2025 Address:[address] [place], [place] [id number] Pcp:Kylie Murray MD Subjective: * Chief Complaints: * 1 . Annual COOK HELPER MEAT Physical. * Medical History: Objective: * Vitals: Assessment: Plan: * Treatment: * Images: Billing Information: * Visit Code: * Procedure Codes: * Electronic signature of Suzi Aviles MD on 06/16/2025 at 06:24 PM EDT Sign off status: Pending * Appointment Provider: Cl Aviles M.D. Date: 0 03/22/2025 Generated for Magalys escalera/Rad/Gema on: 1 06:24 PM EDT
--- OUTSIDE RECORDS SUMMARY | 2025-06-16 18:25 | XMS_ITS | Patient Health Record ---
Author Organization [facility] Address [address] [place] [address] Care Team Providers Care Protection Engineer Name Role Phone Kylie Murray MD Primary Care Provider Unavaila Kristin Espinoza Unavailable [phone] Allergies No Known Allergies Reason For Referral No Information Medications Medication SIG (Take, Route, Frequency, Duration) Notes Start Date End Date Status Mirena (52 MG) 20 MCG/DAY as directed Intrauterine Inserted 08/15/22 Active Tamoxifen Citrate 20 MG TAKE 1 TABLET BY MOUTH DAILY Oral; Duration: 90 Active Social History Tobacco Use: Social [...] Risk Notes Problem Excessive and frequent menstruation (698933917) Excessive and frequent menstruation with regular cycle (N92.0) Active confirmed Problem Anemia due to chronic blood loss (disorder) (542111882) Iron deficiency anemia secondary to blood loss (chronic) (D50.0) Active confirmed Problem Diverticular disease of colon (634190187) Diverticulosis of large intestine without perforation or abscess without bleeding (K57.30) Active confirmed Problem Endometriosis of uterus (35958167) Endometriosis of uterus (N80.0) Active confirmed Problem Abnormal vaginal bleeding (828114796) Other specified abnormal uterine and vaginal bleeding (N93.8) Active confirmed Problem Dysmenorrhea (879569072) Dysmenorrhea, unspecified (N94.6) Active confirmed Problem Imaging result abnormal (699020235) Abnormal findings on diagnostic imaging of other specified body structures (R93.89) Active confirmed Plan Of Treatment Pending Test Test Name Order Date Ultrasound : Abdomen 03/17/2024 Hemoglobin 04/24/2022 COMPLETE BLOOD COUNT 05/09/2022 MM Digital Mammo Screening 03/08/2023 MM Digital Mammo Screening 03/17/2024 MM Digital Mammo Screening 01/26/2022 PELVIC ULTRASOUND W/TRANSVAGINAL 024 Next Appt Details Provider Name:Kristin Witt daniel, 08/12/2025 02:20:00 PM, [address], [address], [place], [address], Insurance Providers Payer Name Payer Address Payer Phone Subscriber Number Group Number Insured Name Patient Relationship to Insured Coverage Start Date Coverage End Date [facility] [address] [place] [address] [id number] BRANDT MCDONNELL Self - patient is the [...]
== END 2025-06-16 14:43 | disposition home or self-care (01) ==
LOC: HO.MAMMO 14:42
PROVIDERS: PCP Internal Medicine; Visit Provider Internal Medicine
DX: Z12.31 Encounter for screening mammogram for malignant neoplasm of breast (principal)
CPT/HCPCS: 77063; 77067

== ENCOUNTER → 2025-06-16 14:45 | Outpatient (BNV) | payer OTHER, SELFPAY | PROVIDERS: PCP Internal Medicine; Visit Provider Radiology Body Imaging | DX: Z12.31 Encounter for screening mammogram for malignant neoplasm of breast (principal) | CPT/HCPCS: 77063; 77067 ==